=== PATIENT | female | born 1935 | race Caucasian/White ===

== ENCOUNTER 2024-02-15 13:28 | Inpatient (IN) | payer MEDICARE, OTHER, SELFPAY ==
[2024-02-15] VITALS (7 sets, daily range): BP systolic 100–121; BP diastolic 63–85; BMI 26.8
--- NOTE | 2024-02-15 11:03 | ED.GENMED ---
History of Present Illness
General
Chief Complaint: Rectal Bleeding
Source: patient
Time Seen by Provider: 02/15/24 10:49
History of Present Illness
History of Present Illness:
88-year-old female sent to the emergency room from [facility] where she was observed to have vomiting, dark stool and to be more lethargic than normal. Patient is typically nonverbal. She does not communicate with us whatsoever.
Past History
Past History
ED Past Medical History: Arrthythmia (AFIB), HTN, IDDM and Other (dementia)
Social History
Tobacco: Non-smoker
Alcohol: None
Drug: None
Personal: (Review of)
Living: [facility]
Employment: Other
Family History
Family History: Unable to obtain
Phy Exam
Physical Exam
Physical Exam:
General: Awake, nonverbal, appears chronically ill
Vitals: unremarkable
Head: Atraumatic
Eyes: Pupils equal, EOMI
Throat: Airway intact, no exudates
Neck: Trachea midline
Lungs: Clear and equal b/l
Heart: Regular rate, no murmurs
Abd: Soft, Nontender, No pulsatile mass
Rectal: Positive black stool
Neuro: Grossly nonfocal
Skin: Warm, dry, no rash
Extremities: pulses equal b/l, no edema
Course
Orders/Labs/Results
Orders:
Orders
02/15/24 10:53
Type+Screen Urgent
Complete Blood Count/With Diff Urgent
Comprehensive Metabolic Panel Urgent
Manual Differential Urgent
PT/INR [Prothrombin Time] Urgent
Troponin I Urgent
Urinalysis Reflex To Culture Urgent
Date Specimen was Collected: 02/15/24
Time Specimen was Collected: 10:49
Urine Microscopic Reflex Cult Urgent
Urine Culture Urgent
ROBBIN Source: U
Specimen Description:
Date Specimen was Collected: 02/15/24
Time Specimen was Collected: 10:49
02/15/24 11:01
Pantoprazole [Protonix IV] 80 mg IV NOW STA
02/15/24 11:38
ABO2 Urgent
BBK Wristband Number:
Associate notified that ABO2 has been ordered: [id number]
Date: 02/15/24
Time: 11:08
Money Manager ID: [id number]
02/15/24 11:55
Pantoprazole 80 mg/100 ml Nss [Protonix] 80 mg in 100 ml IV NOW
02/15/24 11:56
Lactated Ringers [Lr] 1,000 ml IV BOLUS
02/15/24 12:46
EKG [Electrocardiogram (*1)] Urgent
Reason for Study: Atrial Fibrillation
02/15/24 13:02
C DIFF [C difficile Antigen & Toxins] Urgent
ROBBIN Source: Feces/Stool
Specimen Description:
Ova & Parasites Giardia/Crypto AG [Giardia/Cryptosporidium Ag] Routine
ROBBIN Source: Feces/Stool
Specimen Description:
Stool Culture Urgent
ROBBIN Source: Feces/Stool
Specimen Description:
02/15/24 13:03
Phytonadione [Aquamephyton] 5 mg 0.9% Sodium Chloride 50 ml [Nss] 50 ml IV NOW
Abnormal Lab Results
02/15/24
10:53
WBC 12.8 H 10^3/uL
(4.8-10.8)
MCH 31.9 H pg
(27.0-31.0)
MPV 12.1 H fL
(7.4-10.4)
Abs Neuts (Manual) 10.8 H 10^3/uL
(1.4-6.5)
Band Neutrophils 20 H %
(0-3)
Lymphocytes (Manual) 5 L %
(20-51)
Monocytes (Manual) 10 H %
(2-9)
PT 56.5 H Sec
(11.4-14.6)
INR 6.48 H*
Carbon Dioxide 19 L mmol/L
(22-30)
BUN 113 H* mg/dl
(7-17)
Creatinine 2.7 H mg/dL
(0.6-1.0)
Glucose 192 H mg/dl
(70-99)
Total Protein 6.1 L g/dl
(6.3-8.2)
Albumin 3.4 L g/dl
(3.5-5.0)
Ur Occult Blood Reflex 1+ A
(Negative)
Urine Bilirubin 1+ A
(Negative)
Leukocyte Esterase Rfl 1+ A
(Negative)
Urine RBC 7-10 A /HPF
(0-2)
Urine WBC (Reflex) 40-50 A /HPF
(0-5)
Urine Bacteria (Reflex) Many A
(Negative)
Antibody Screen Positive A
(Negative)
02/15/24 10:53
02/15/24 10:53
Vital Signs
Initial and Last Documented VS:
Initial Vital Signs
Temp Pulse Resp BP Pulse Ox
99.1 F 118 20 120/85 96
02/15/24 10:51 02/15/24 10:51 02/15/24 10:51 02/15/24 10:51 02/15/24 10:51
Last Documented Vital Signs
Temp Pulse Resp BP Pulse Ox
99.1 F 100 21 101/63 98
02/15/24 10:51 02/15/24 11:45 02/15/24 11:45 02/15/24 11:31 02/15/24 11:45
MDM/Problems Addressed
Differential Diagnosis Includes:
Upper GI bleed, gastritis, peptic ulcer disease
MDM/Problems Addressed:
Patient presents from [facility] with melanotic stool. Presentation is very suggestive of a upper GI bleed given her elevated BUN. Patient unable to provide a history. Daughter in emergency room and states she had does have a history of a GI
bleed in the distant past. Patient noted to have antibody screen that is positive in blood bank. They will have to go through a process to identify the antibody before she can be crossed for any units of blood. Patient states that the patient has
not had a blood transfusion since they have been here in [facility]. She may have had a blood transfusion in [facility] which would have been 40 years ago.
Chronic conditions affecting care: Other (Dementia)
*Pulse Oximetry
Patient hypoxic: no
*Critical Care Note
Total Time (30-74mins, 75-104mins- exclusive of procedures): 32 min
comment:
Critical care statement: A total of 32 minutes of critical care time was provided for this patient. This includes management of unstable vital signs, evaluation of the patient at bedside, reviewing the patient's pertinent medical records, discussion
with consultants, review of old EKGs and review of pertinent medical records. This time with separate from time utilized to perform the aforementioned documented procedure
Data Reviewed
Review of Other/Old Records Reveals: Discharge Summary
Patient Management
Social determinants of health affecting care: Living situation
Discussion with other providers: Hospitalist
ED Attending Note
-
Portions of this chart may have been created with voice recognition software.� Occasional wrong word or��sound alike� substitutions may have occurred due to the inherent limitations of voice recognition software.
Discharge Plan
Departure
Patient Disposition: Admit
Date of Disposition: 02/15/24
Time of Disposition: 12:02
Admit to: IMU
Presentation/result/management discussed w/ accepting MD/DO: Hospitalist
Condition: Fair
Discharge Problem:
Acute upper GI bleeding
Prescriptions:
No Action
acetaminophen 325 MG tablet
650 mg PO Q4H PRN (Reason: mild pain/temp>100)
atorvastatin 20 MG tablet
20 mg PO DAILY
ferrous sulfate [FeroSul] 325 MG tablet
325 mg PO BID
mirtazapine 15 MG tablet
7.5 mg PO HS
cholecalciferol (vitamin D3) 2,000 UNITS tablet
4,000 unit PO DAILY
bumetanide 0.5 mg Tablet
0.5 mg PO DAILY
metoprolol tartrate 50 mg tablet
50 mg PO BID
diltiazem HCl 120 mg capsule,extended release 24hr
120 mg PO DAILY
spironolactone 50 mg Tablet
50 mg PO DAILY
linagliptin 5 mg Tablet
5 mg PO DAILY
magnesium oxide 400 mg magnesium Tablet
400 mg PO BID
Fiasp FlexTouch U-100 Insulin 100 unit/mL (3 mL) Insulin Pen
6 unit SC NOON
trolamine salicylate [Aspercreme] 10 % Cream
1 applic TOPICAL BID
Rx Instructions:
right knee
insulin glargine [Lantus Solostar U-100 Insulin] 100 unit/mL (3 mL) Insulin Pen
8 unit SC HS
Fiasp FlexTouch U-100 Insulin 100 unit/mL (3 mL) Insulin Pen
7 unit SC QPM
Fiasp FlexTouch U-100 Insulin 100 unit/mL (3 mL) Insulin Pen
4 unit SC DAILY
warfarin [Jantoven] 1 MG tablet
1 mg PO QPM
Referrals:
Laurent Jensen MD [Family Provider] -
Interventions
Interventions:
*Risk Screen - Suicide Last Done: 02/15/24 10:43
*General Assessment Last Done: 02/15/24 10:43
*Neglect/Abuse Screening Last Done: 02/15/24 10:43
ED- Fall Risk Assessment Last Done: 02/15/24 11:20
RT-Mvmtrg-Vxkcrvvqnz Assessment Last Done: 02/15/24 11:20
ED- Cardiac Assessment Last Done: 02/15/24 11:20
ED- Pulmonary Assessment Last Done: 02/15/24 11:20
Discharge Date and Time
Print Language: [place]
[2024-02-15 11:19] LABS: AST (SGOT) 33 U/L (14-36); Albumin 3.4 g/dl (3.5-5.0); Alkaline Phosphatase 80 U/L (38-126); Blood Urea Nitrogen 113 mg/dl (7-17); Calcium 8.6 mg/dl (8.4-10.2); Carbon Dioxide 19 mmol/L (22-30); Chloride 100 mmol/L (98-107); Glucose 192 mg/dl (70-99); Potassium 4.5 mmol/L (3.5-5.1); Sodium 136 mmol/L (135-145); Total Bilirubin 0.7 mg/dl (0.2-1.3); Total Protein 6.1 g/dl (6.3-8.2); eGFR 16.45
[2024-02-15] MEDS: PROTONIX IV 80 MG IV (11:32)
[2024-02-15 11:37] LABS: Urine Albumin Trace (Neg - Trace); Urine Bilirubin 1+ (Negative); Urine Character Clear (Clear); Urine Color Yellow; Urine Glucose Negative (Negative); Urine Ketone Negative (Negative); Urine Leukocyte 1+ (Negative); Urine Nitrite Negative (Negative); Urine Occult Blood 1+ (Negative); Urine Specific Gravity 1.015 (<1.030); Urine Urobilinogen Negative (Neg - 1+)
[2024-02-15 11:41] LABS: ALT (SGPT) 35 U/L (0-35)
[2024-02-15 11:47] LABS: Hematocrit 40.4 % (37.0-47.0); Hemoglobin 13.9 g/dL (12.0-16.0); Mean Corp Hgb Conc. 34.4 g/dL (33.0-37.0); Mean Corpuscular Hgb 31.9 pg (27.0-31.0); Mean Corpuscular Volume 92.7 fL (81.0-99.0); Mean Platelet Volume 12.1 fL (7.4-10.4); Platelet Count 187 10^3/uL (130-400); Red Blood Cell Count 4.36 10^6/uL (4.20-5.40); Red Cell Dist. Width 13.6 % (11.5-14.5); White Blood Cell Count 12.8 10^3/uL (4.8-10.8)
[2024-02-15 11:55] LABS: PT 56.5 Sec (11.4-14.6)
[2024-02-15 12:04] LABS: INR 6.48
[2024-02-15] MEDS: PROTONIX 100 IV (12:08)
[2024-02-15] MEDS: LR 1000 IV (12:08)
--- NOTE | 2024-02-15 12:21 | HPS.HSE ---
Family Physician
-
Family Physician: Laurent Jensen MD
Chief Complaint
-
Nausea, vomiting, diarrhea
History of Present Illness
88-year-old female sent from [facility] where she has resided since March 2018 for reported several days of diarrhea vomiting and weakness. Nurse reports she had black tarry like stool that was heme positive here in the ER. She
has had no episodes of vomiting while here. It appears she had lab work done on 02/05/2020 for her Coumadin was dropped to 1 mg daily until 02/19/2024 I am unsure of last dose. She is very lethargic sleeping will not open eyes although she will
move arms and readjust herself in bed she typically eats dysphagia 3 diet with thin liquids according to [facility] record and swallows pills orally although is completely unable to do that at present time due to extreme lethargy with inability to
follow commands. Her primary language is Vincentian according to chart. retirement denied fever, chills, diaphoresis, cough. Patient's mouth appears somewhat moist with manual opening, she does not grimace when I palpate her abdomen. She has past
medical history of paroxysmal A-fib on Coumadin, CKD stage Sandi, benign HTN, dementia with nonverbal status, bedbound status, dysphagia 3 diet with thin liquids, DM2 requiring insulin, chronic CHF, HLD, depression, osteoporosis, vitamin D deficiency,
PVD, venous insufficiency
Medical History
Past Medical History
Past Medical History: Reports Other
Additional Past Medical History:
A-fib on Coumadin
HTN
HLD
Chronic CHF
Cardiomyopathy
Dementia
Bedbound/nonverbal
Dysphagia
DM 2 requiring insulin
CKD 4A
Depression
Osteoporosis
PVD/venous insufficiency
Vitamin D deficiency
Past Surgical History: Reports Other
Additional Past Surgical History:
Hemorrhoidectomy
Social History
Tobacco: Non-smoker
Alcohol: None
Drug: None
Personal: Single
Living: Assisted ([facility])
Employment: Retired
Family History
Family History: Unable to Obtain
Allergies / Home Medications
Allergies reflects when Allergies were last updated in [facility].
Home Medications with original date entered in [facility]
Allergy/Medication List:
Allergies
Allergy/AdvReac Type Severity Reaction Status Date / Time
No Known Allergies Allergy Verified 02/15/24 10:42
Home Medications
acetaminophen 325 mg tablet 650 mg PO Q4H PRN mild pain/temp>100 04/05/18
atorvastatin 20 mg tablet 20 mg PO DAILY 04/05/18
cholecalciferol (vitamin D3) 50 mcg (2,000 unit) tablet 4,000 unit PO DAILY 04/05/18
ferrous sulfate 325 mg (65 mg iron) tablet (FeroSul) 325 mg PO BID 04/05/18
mirtazapine 15 mg tablet 7.5 mg PO HS 04/05/18
bumetanide 0.5 mg tablet 0.5 mg PO DAILY 06/18/22
diltiazem HCl 120 mg capsule,extended release 24 hr 120 mg PO DAILY 06/18/22
linagliptin 5 mg tablet 5 mg PO DAILY 06/18/22
magnesium oxide 400 mg PO BID 06/18/22
metoprolol tartrate 50 mg tablet 50 mg PO BID 06/18/22
spironolactone 50 mg tablet 50 mg PO DAILY 06/18/22
insulin aspart (niacinamide)(U-100) 100 unit/mL(3 mL) subcutaneous pen (Fiasp FlexTouch U-100 Insulin) 4 unit SC DAILY 02/15/24
insulin aspart (niacinamide)(U-100) 100 unit/mL(3 mL) subcutaneous pen (Fiasp FlexTouch U-100 Insulin) 6 unit SC NOON 02/15/24
insulin aspart (niacinamide)(U-100) 100 unit/mL(3 mL) subcutaneous pen (Fiasp FlexTouch U-100 Insulin) 7 unit SC QPM 02/15/24
insulin glargine 100 unit/mL (3 mL) subcutaneous pen (Lantus Solostar U-100 Insulin) 8 unit SC HS 02/15/24
trolamine salicylate 10 % topical cream (Aspercreme) 1 applic topical BID 02/15/24
warfarin 1 mg tablet (Jantoven) 1 mg PO QPM 02/15/24
Review of Systems
-
History Source: Assisted (Record) and Other (ER nurse record and exam)
A 12 point ROS was completed and negative except as noted: Yes
Constitutional: Denies Fever
EENT: Denies Runny Nose
Respiratory: Denies Cough or Trouble Breathing
Cardiac: Denies Diaphoresis or Syncope
Abdomen/GI: Reports Vomiting (Reported from [facility]) and Diarrhea (Reported from [facility] although here is black and tarry like); Denies Abdominal Pain or Bloody Stools
: Reports Other (Bedbound wears depends)
Musculoskeletal: Denies Joint Swelling or Edema
Skin: Denies Rash
Neurological: Reports Weakness (Generalized weakness will not open eyes but will move arms and legs in bed)
Endocrine: Reports No Symptoms
Hematologic/Lymphatic: Reports No Symptoms
Psych: Reports Calm
Physical Exam
Vital Signs
Vital Signs
Temp Pulse Resp BP Pulse Ox
99.1 F 100 21 101/63 98
02/15/24 10:51 02/15/24 11:45 02/15/24 11:45 02/15/24 11:31 02/15/24 11:45
Physical Exam
General: Other (Profound lethargy will not open eyes but will move arms and legs in bed history of dementia nonverbal and bedbound status although does take oral tablets at [facility]); No Fever or Chills
HEENT: NormoCephalic, PERRLA, [place] Conjunctivae (With manual opening of eyes), No Ptosis and Other (Slight moist oral mucosa with manual side-opening of mouth)
Respiratory: Clear; No Wheezes, Rales or Rhonchi
Cardiac: S1/S2 and Irregular Rhythm (A-fib); No Murmur, Rub, Gallop or Peripheral Edema
Breast: Deferred by me
GI: Soft, Non Tender, Non Distended, Normal Bowel Sounds and No Hepatosplenomegaly
Rectal: Hem Positive (Black tarry stool per ER attending)
Genito-urinary: Deferred by me
Musculoskeletal: No Clubbing, No Cyanosis and No Edema
Skin: Warm and Dry; No Rash
Neuro: No Motor Deficits (Is spontaneously moving arms and legs in bed with eyes closed) and Other (Profound lethargy will not open eyes but will move arms and legs in bed history of dementia nonverbal and bedbound status although does take oral
tablets at [facility]); No Slurred Speech, Facial Droop or Tremors
Psych: Calm
Laboratory Results
-
02/15/24 10:53
02/15/24 10:53
Laboratory Results
PT 56.5 Sec (11.4-14.6) H 02/15/24 10:53
INR 6.48 H* 02/15/24 10:53
Total Bilirubin 0.7 mg/dl (0.2-1.3) 02/15/24 10:53
AST 33 U/L (14-36) 02/15/24 10:53
ALT 35 U/L (0-35) 02/15/24 10:53
Alkaline Phosphatase 80 U/L (38-126) 02/15/24 10:53
Troponin I 0.020 ng/ml 02/15/24 10:53
Data Reviewed
-
Lab Data: Labs Reviewed by me
Impression/Plan
-
Impression/plan:
Admit to telemetry
#GI bleed on Coumadin with supratherapeutic INR
-Hgb 13.9
-Obtain blood consent
-Type and screen
-Hold on current blood transfusion
-Hold current oral iron 325 mg twice daily
-IV PPI bolus with drip
-Consult GI
#Supratherapeutic INR on Coumadin
INR 6.48
-Vitamin K 5 mg IV due to patient lethargy unable to swallow
-Check INR in a.m.
#Leukocytosis with bandemia likely UTI based on UA results
History of E. coli and Proteus [place] 2018 in urine urine
-Will check UA/ CONCRETE RUBBER -straight cath,
-Noncontrast CT of abdomen pelvis
-CXR
-Blood culture x 1
-IV Zosyn renal dose
-Follow above including CBC with differential
#A-fib on Coumadin
-Hold Coumadin due to GI bleed, hold metoprolol tartrate for rate control
#LINDSEY due to blood loss/volume depletion on CKD stage 4A
Creatinine 2.7 prior was 1.10 June 2022
-IV LR 1 L given in ER
-Will give D5 with sodium bicarb 80 cc an hour
-Follow CMP, mag, Phos
#Reported diarrhea from [facility]
-Will check C. difficile, stool culture, ova and parasites
#Hypotension due to volume depletion/blood loss/Hx HTN�benign
BP 101/63
-cont metoprolol tartrate 50 mg twice daily
-hold spironolactone 50 mg daily, Bumex 0.5 mg daily
-Hold diltiazem 120 mg daily
#Dementia-nonverbal
#Bedbound
-Fall precautions
#Dysphagia
Typically eats dysphagia 3 with thin liquids
-We will hold above diet due to GI bleed
-N.p.o. except meds when alert
#DM 2 requiring insulin
BS 192
-Accu-Cheks with SSI, check HgbA1c
-Hold U100 4 units subcu daily, 6 units SQ noon, 7 units subcu p.m.
-Hold Lantus 8 units SQ at bedtime
-Hold linagliptin 5 mg daily
#HLD
-Hold a atorvastatin 20 mg daily
#Chronic CHF
#Cardiomyopathy
I/O, daily weights
-Hold spironolactone due to GI bleed
2D echo 04/06/2018: EF 50-55%, normal LVSF, severely dilated left and right atrium, moderate to severe TR pulm arterial pressure 56 to 61 mmHg-mild/moderate pulm
#Depression
-Continue mirtazapine 7.5 mg p.o. at bedtime
Other PMH:
Osteoporosis
PVD/venous insufficiency
DVT prophylaxis
SCDs
DNR per [facility] records
[2024-02-15 12:36] LABS: Absolute Neutrophils -Man Diff 10.8 10^3/uL (1.4-6.5); Band Neutrophils 20 % (0-3); Lymphocytes 5 % (20-51); Monocytes 10 % (2-9); Segmented Neutrophils 65 % (42-75)
[2024-02-15 12:37] LABS: Normal RBC Morphology Yes; Platelets Checked Yes; Total Cells Counted 100
[2024-02-15 12:53] LABS: Urine Mucus Moderate
[2024-02-15 12:54] LABS: Urine Amorphous Seen; Urine Hyaline Cast >15 /LPF (0-2)
[2024-02-15 12:55] LABS: Urine White Cell 40-50 /HPF (0-5)
--- NOTE | 2024-02-15 12:55 | W.PN.UPDATE ---
Addendum entered and electronically signed by Ashwini Milligan MD 02/16/24 00:00:
CT A/P
IMPRESSION:
MARKEDLY LIMITED STUDY WITHOUT ORAL CONTRAST, WITHOUT INTRAVENOUS CONTRAST AND A RESULT OF MARKED BEAM HARDENING ARTIFACT FROM BILATERAL UPPER EXTREMITIES.
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 Cannot exclude
accompanying intervening small abnormal focal fluid collection. Repeat study with oral contrast/delayed imaging may be helpful for more complete evaluation.
Cholelithiasis.
Small simple left renal cyst. No findings to suggest bilateral obstructive uropathy.
Marked thickening of the wall predominantly of distal small bowel seen in the right lower quadrant extending into the true pelvis abutting the sigmoid colon
Lobulated low-attenuation cystic area with peripheral calcification in the right retroperitoneum measuring 5 cm in greatest dimension, well-defined. One differential diagnostic possibility would be an old calcified hematoma.
continue IV Zosyn
low threshold for repeat CT with oral contrast (if patient tolerates) if no clinical improvement
Addendum entered and electronically signed by Ashwini Milligan MD 02/15/24 13:29:
UA inflamed, unclear if source of bandemia. Will treat with IV Zosyn which will also cover GI source - awaiting CT.
Original Note:
Update Note
Progress Note Update
This is an addendum to H&P written by CASE PACKER Em Mabry
I saw and examined the patient.
The CASE PACKER's note was reviewed and I agree with the note.
Comment:
Ms. Gretta Dill is a 88 yo woman with hx dementia (non-verbal at baseline, resident of [facility]), atrial fibrillation, essential HTN, IDDM presents to the ER with vomiting and found to have dark stool.
Triage VS: T 99.1, P 118, RR 20, BP 120/85, SpO2 96%
LABS: WBC 12.8, Hg 13.9, PLT 187, bands 20%, Na 136, K+ 4.5, CO2 19, BUN 113, Cr 2.7, Glucose 192, Trop 0.020, liver enzymes WNL, INR 6.48
MAR: IV protonix, IV protonix gtt, LR bolus
Patient is found to be lethargic but responding to daughter at bedside, abdomen benign, no LE swelling. She is found to be in afib with RVR, have a leukocytosis with bandemia, acute kidney injury and INR 6.48.
Melena and Diarrhea
-non-con CT given presence of bandemia and LINDSEY (see below)
-continue IV protonix gtt
-NPO
-GI consulted
Acute Kidney Injury
-further work-up with non-con CT
-urine studies
-IV sodium bicarb
Bandemia
-will look for sources of infection with UA, CXR and CT as above
Atrial Fibrillation
INR > 6
-in setting of bleed will give IV vitamin K, start with 5mg
-hold coumadin
-STEPDOWN NURSE Metoprolol with hold parameters
-hold Dilitazem for now with soft BP
IDDM
-1/2 STEPDOWN NURSE Lantus 4 units qhs; hold pre-meal
-ISS
HFpEF
-hold STEPDOWN NURSE spironolactone and bumex
DNR
76 minutes spent on patient care
[2024-02-15 12:57] LABS: Urine Bacteria Many (Negative)
--- NOTE | 2024-02-15 14:23 | PTCARENOTE ---
patient arrived to unit. VSS, Heart monitor placed. SCDs in place. foam dressing placed to sacrum. Patient's family at bedside. will continue to monitor
[2024-02-15 14:39] LABS: Phosphorus 5.1 mg/dl (2.5-4.5)
[2024-02-15] MEDS: AQUAMEPHYTON 50.5 MG IV (14:47)
--- NOTE | 2024-02-15 15:02 | CON.GI ---
Addendum entered and electronically signed by Ranulfo Merritt DO 02/15/24 17:40:
I saw and examined the patient.
The RESEARCH ASSOCIATE POLICY's note was reviewed and I agree with the note.
Comment: This is a 88 y.o non-verbal patient with past medical history as below who presented from SNF with change in mental status, vomiting, and dark stools. She is on coumadin for her personal history of A Fib. Found to have dark tarry stools
concerning for melena in ED with a Hgb 13s and INR 6.48 in ED. Patient is quite lethargic and unable to provide any history. She has not had any further melena on admission, doubt brisk UGIB. No prior history of GI bleeding in the past. Suspect
oozing in setting of her supratherapeutic INR. She is also on iron supplementation as well. Given her current mental status and overall co-morbidities, would recommend conservative management rather than endoscopy at this time.
#Dark Stools
#Supratherapeutic INR
#Non-verbal #Dementia
Recommendations:
- Await infectious w/u given concern for altered mental status and leukocytosis
- IV PPI 40 gm BiD
- Trend Hgb with serial CBC, transfuse PRN
- Agree with cross-sectional imaging both for infectious purposes given her AMS and leukocytosis and concern for GIB
- No plans for endoscopic evaluation at this time. Would consider EGD if patient's clinical course were to change, but prefer to avoid this given her overall clinical condition
- Avoidance of all NSAIDs
- Rest of care as outlined below
Original Note:
Consultation
-
Date/Time Consultation Requested: 02/15/24 1300
Date/Time Consultation Performed: 02/15/24 1500
Requesting Provider: KISHA Kruse
Performing Provider: KISHA Poon, Ranulfo Merritt DO
Reason for Consultation: black stool
Medical History
Chief Complaint / HPI
Chief Complaint: change in mental status
History of Present Illness:
Pt is an 88yo non verbal with hx dementia, afib on Coumadin, CKD, CHF, HTN, hyperlipidemia, CKD, NIDDM, cardiomyopathy, osteoporosis, PVD, venous insufficiency, vitamin D presents from SNF with change in mental status, black stools and vomiting. In
ER she is noted with black tarry stools. On admission noted with WBC 12,800, BUN 113, creat 2.7, mag 4, phos 5.1, INR 6.48(with chronic Coumadin use) with also concern for UTI. In review with daughter patient is baseline non verbal but awake and
alert with chronic pureed diet. Daughter admits to episode of vomiting prior to admission but unsure if any blood or black in emesis. She is not aware of GERD, abdominal pain, chronic diarrhea, constipation or prior bleeding. Hx colonoscopy years
ago. Pt is on chronic iron therapy prior to admission.
Past Medical History
Past Medical History: Arrhythmias (afib on coumadin ), CHF, HTN, Hypercholesterolemia, NIDDM, Renal Failure (CKD), Psychiatric (dementia) and Other (cardiomyopathy, osteoporosis, PVD, venous insufficiency, vitamin D)
Past Surgical History: Other (hemorrhoidectomy)
Social History
Tobacco: Non-Smoker
Alcohol: None
Drug: None
Living: Shelter
Employment: Retired
Family History
Family History: Reviewed & Not Pertinent and Other
Allergies / Home Medications
Allergy/AdvReac Type Severity Reaction Status Date / Time
No Known Allergies Allergy Verified 02/15/24 10:42
�Medication �Instructions �Recorded
acetaminophen 325 mg tablet 650 mg PO Q4H PRN mild 04/05/18
pain/temp>100
atorvastatin 20 mg tablet 20 mg PO DAILY 04/05/18
cholecalciferol (vitamin D3) 50 4,000 unit PO DAILY 04/05/18
mcg (2,000 unit) tablet
ferrous sulfate 325 mg (65 mg 325 mg PO BID 04/05/18
iron) tablet (FeroSul)
mirtazapine 15 mg tablet 7.5 mg PO HS 04/05/18
bumetanide 0.5 mg tablet 0.5 mg PO DAILY 06/18/22
diltiazem HCl 120 mg 120 mg PO DAILY 06/18/22
capsule,extended release 24 hr
linagliptin 5 mg tablet 5 mg PO DAILY 06/18/22
magnesium oxide 400 mg PO BID 06/18/22
metoprolol tartrate 50 mg tablet 50 mg PO BID 06/18/22
spironolactone 50 mg tablet 50 mg PO DAILY 06/18/22
insulin aspart 4 unit SC DAILY 02/15/24
(niacinamide)(U-100) 100 unit/mL(3
mL) subcutaneous pen (Fiasp
FlexTouch U-100 Insulin)
insulin aspart 6 unit SC NOON 02/15/24
(niacinamide)(U-100) 100 unit/mL(3
mL) subcutaneous pen (Fiasp
FlexTouch U-100 Insulin)
insulin aspart 7 unit SC QPM 02/15/24
(niacinamide)(U-100) 100 unit/mL(3
mL) subcutaneous pen (Fiasp
FlexTouch U-100 Insulin)
insulin glargine 100 unit/mL (3 8 unit SC HS 02/15/24
mL) subcutaneous pen (Lantus
Solostar U-100 Insulin)
trolamine salicylate 10 % topical 1 applic topical BID 02/15/24
cream (Aspercreme)
warfarin 1 mg tablet (Jantoven) 1 mg PO QPM 02/15/24
Review of Systems
-
Unable to obtain full review of systems at this time due to: Dementia
History Source: Patient and Family
Constitutional: Reports Fatigue
EENT: Reports No Symptoms
Respiratory: Reports No Symptoms
Cardiac: Reports No Symptoms
Abdomen/GI: Reports Vomiting and Black Stools
: Reports No Symptoms
Musculoskeletal: Reports No Symptoms
Skin: Reports No Symptoms
Neurological: Reports Weakness
Endocrine: Reports No Symptoms
Hematologic/Lymphatic: Reports Bleeding
Vital Signs
Temp Pulse Resp BP Pulse Ox
97.7 F 124 24 121/76 98
02/15/24 14:27 02/15/24 14:27 02/15/24 14:27 02/15/24 14:27 02/15/24 14:27
Physical Exam
Exam
General: Other (elderly female non verbal eyes closed but open with some stimulation)
HEENT: Normocephalic and Anicteric
Respiratory: Clear
Cardiac: Other (tachy)
GI: Soft, Non Distended and Tender (? minimal grimace with palpation, limited exam with decreased mentation)
Rectal: Other (black tarry stool in ER)
Musculoskeletal: No Clubbing and No Cyanosis
Skin: Warm and Dry
Neuro: Other (lethargic some eye opening with stimuli)
Psych: Calm
Results
WBC 12.8 10^3/uL (4.8-10.8) H 02/15/24 10:53
Hgb 13.9 g/dL (12.0-16.0) 02/15/24 10:53
Hct 40.4 % (37.0-47.0) 02/15/24 10:53
MCV 92.7 fL (81.0-99.0) 02/15/24 10:53
Plt Count 187 10^3/uL (130-400) 02/15/24 10:53
PT 56.5 Sec (11.4-14.6) H 02/15/24 10:53
INR 6.48 H* 02/15/24 10:53
Sodium 136 mmol/L (135-145) 02/15/24 10:53
Potassium 4.5 mmol/L (3.5-5.1) 02/15/24 10:53
Chloride 100 mmol/L (98-107) 02/15/24 10:53
Carbon Dioxide 19 mmol/L (22-30) L 02/15/24 10:53
BUN 113 mg/dl (7-17) H* 02/15/24 10:53
Creatinine 2.7 mg/dL (0.6-1.0) H 02/15/24 10:53
Calcium 8.6 mg/dl (8.4-10.2) 02/15/24 10:53
Total Bilirubin 0.7 mg/dl (0.2-1.3) 02/15/24 10:53
AST 33 U/L (14-36) 02/15/24 10:53
ALT 35 U/L (0-35) 02/15/24 10:53
Alkaline Phosphatase 80 U/L (38-126) 02/15/24 10:53
Diagnostic Image Results:
CT pending
Prior GI Procedures:
EGD: none
Colonoscopy: years ago per family
Assessment / Plan
-
Pt is an 88yo non verbal with hx dementia, afib on Coumadin, CKD, CHF, HTN, hyperlipidemia, CKD, NIDDM, cardiomyopathy, osteoporosis, PVD, venous insufficiency, vitamin D presents from SNF with change in mental status, black stools and vomiting. In
ER she is noted with black tarry stools. On admission noted with WBC 12,800, BUN 113, creat 2.7, mag 4, phos 5.1, INR 6.48(with chronic Coumadin use) with also concern for UTI. In review with daughter patient is baseline non verbal but awake and
alert with chronic pureed diet. Daughter admits to episode of vomiting prior to admission but unsure if any blood or black in emesis. She is not aware of GERD, abdominal pain, chronic diarrhea, constipation or prior bleeding. Hx colonoscopy years
ago. Pt is on chronic iron therapy prior to admission.
-melena
-change in mental status
-diarrhea prior to admission
-leukocytosis with bandemia
-tachycardia
-afib on Coumadin
-coagulopathy on admission
-LINDSEY with hx CKD
other med problems:
-dementia baseline non verbal per family
-chronic dysphagia on pureed diet
-DM
-CHF
-HTN
-hyperlipidemia
-CM
-PVD
-venous insufficiency
-depression
PLAN:
etiology of melena related with marked elevated BUN related to upper GI source, PUD, HH/suly lesions, AVM, vs other
agree with CT
monitor stools output and trend hbg -- remain stable at 13.9 on admission
s/p vitamin K
PPI BID
await work up for leukocytosis
consider EGD pending course
I updated daughter Annette - she is primary contact for consent if needed
-
-
Thank you for consultation and allowing me to participate in the patient's care. Please call the environmental protection geologist GI physician during the after hours with any questions or concerns.
[2024-02-15] MEDS: ZOSYN 50 IV ×2 (15:22→23:14)
--- NOTE | 2024-02-15 15:46 | PTOTSP ---
Chart reviewed, spoke with nurse. The patient is a half-way resident, nonverbal and bedbound at baseline. No functional goals to warrant PT evaluation, will sign off. Discussed with RN.
[2024-02-15] MEDS: SODIUM BICARBONATE 1150 MEQ IV (16:27)
[2024-02-15 16:44] LABS: Glucose - Point of Care 214 mg/dl (70-99)
[2024-02-15] MEDS: NOVOLOG FLEXPEN-LOW RESISTANCE 2 UNITS SC (18:08)
--- NOTE | 2024-02-15 18:43 | PTCARENOTE ---
patient's CT resulted, MD Milligan notified
[2024-02-15] MEDS: LOPRESSOR PO (21:08)
[2024-02-15 21:14] LABS: Glucose - Point of Care 221 mg/dl (70-99)
[2024-02-15] MEDS: LANTUS 0.04 UNITS SC (21:15)
[2024-02-16 00:53] LABS: Glucose - Point of Care 207 mg/dl (70-99)
[2024-02-16] MEDS: NOVOLOG FLEXPEN-LOW RESISTANCE 2 UNITS SC ×2 (00:55→12:53)
[2024-02-16 01:07] LABS: Glucose - Point of Care 218 mg/dl (70-99)
[2024-02-16 03:32] VITALS: BP 117/79
[2024-02-16] MEDS: SODIUM BICARBONATE 1150 MEQ IV (05:37)
[2024-02-16 05:47] LABS: Hemoglobin 12.7 g/dL (12.0-16.0); Mean Corp Hgb Conc. 33.4 g/dL (33.0-37.0); Mean Corpuscular Hgb 32.4 pg (27.0-31.0); Mean Corpuscular Volume 96.9 fL (81.0-99.0); Mean Platelet Volume 11.9 fL (7.4-10.4); Platelet Count 161 10^3/uL (130-400); Red Blood Cell Count 3.92 10^6/uL (4.20-5.40); Red Cell Dist. Width 13.7 % (11.5-14.5); White Blood Cell Count 10.4 10^3/uL (4.8-10.8)
[2024-02-16 05:48] LABS: INR 1.26; PT 16.3 Sec (11.4-14.6)
[2024-02-16 05:57] LABS: Blood Urea Nitrogen 95 mg/dl (7-17); Calcium 8.5 mg/dl (8.4-10.2); Carbon Dioxide 29 mmol/L (22-30); Chloride 100 mmol/L (98-107); Estimated Creatinine Clearance 20 ml/min; Glucose 216 mg/dl (70-99); Potassium 3.9 mmol/L (3.5-5.1); Sodium 142 mmol/L (135-145); eGFR 26.77
[2024-02-16 06:00] VITALS: BMI 27.1
[2024-02-16 06:17] LABS: Glucose - Point of Care 179 mg/dl (70-99)
[2024-02-16] MEDS: NOVOLOG FLEXPEN-LOW RESISTANCE 1 UNITS SC (06:18)
[2024-02-16 06:54] LABS: % Basophils 0.6 % (0-2); % Eosinophils 0.6 % (0-6); % Immature Granulocytes 0.7 % (0-0.5); % Monocytes 11.1 % (1.7-9.3); Absolute Basophils 0.1 10^3/uL (0-0.2); Absolute Eosinophils 0.1 10^3/uL (0-0.7); Absolute Immature Granulocytes 0.1 10^3/uL (0-0.05); Absolute Lymphocytes 0.9 10^3/uL (1.2-3.4); Absolute Monocytes 1.2 10^3/uL (0.1-0.6); Absolute Neutrophils 8.1 10^3/uL (1.4-6.5); Nucleated Red Blood Cells % 0 %
[2024-02-16 07:00] VITALS: BP 101/57
--- NOTE | 2024-02-16 07:52 | W.PN.HOSP.TC ---
Today's Communication/Plan
-
see bold
Assessment / Plan
Assessment / Plan
88-year-old female sent from [facility] where she has resided since March 2018 for reported several days of diarrhea vomiting and weakness. Nurse reports she had black tarry like stool that was heme positive here in the ER. She
has had no episodes of vomiting while here. It appears she had lab work done on 02/05/2020 for her Coumadin was dropped to 1 mg daily until 02/19/2024 I am unsure of last dose. She is very lethargic sleeping will not open eyes although she will
move arms and readjust herself in bed she typically eats dysphagia 3 diet with thin liquids according to halfway record and swallows pills orally although is completely unable to do that at present time due to extreme lethargy with inability to
follow commands. Her primary language is Italian according to chart. prison denied fever, chills, diaphoresis, cough. Patient's mouth appears somewhat moist with manual opening, she does not grimace when I palpate her abdomen. She has past
medical history of paroxysmal A-fib on Coumadin, CKD stage Sandi, benign HTN, dementia with nonverbal status, bedbound status, dysphagia 3 diet with thin liquids, DM2 requiring insulin, chronic CHF, HLD, depression, osteoporosis, vitamin D deficiency,
PVD, venous insufficiency
#Sigmoid colitis
#Leukocytosis with bandemia
Continue IV Zosyn
#Dark stools
Patient is on iron twice a day
Appreciate GI input, no signs of active bleeding, recommend PPI 40 twice daily inpt, then change to once daily upon discharge
Hemoglobin remains normal
Monitor hemoglobin, heme test stool
#Supratherapeutic INR
#Atrial fibrillation on Coumadin
INR 6.48 upon admission, normal today status post vitamin K 5 mg IV on 02/14
Resume Coumadin 1 mg p.o. daily
Continue metoprolol for rate control
Resume diltiazem for rate control
# Positive blood cultures
02/15/2024 blood culture growing gram-positive cocci
Possibly contaminant, repeat blood cultures today
Already on antibiotics for the above
#Acute kidney injury
Improving w/ IVFs
Due to dehydration, continue IV fluids, trend creatinine
No nephrotoxic drugs/NSAIDs
#Urinary tract infection ruled out
Urine cultures growing 50,000 colonies of gram-negative rods
#Essential hypertension
Hold spironolactone. Continue metoprolol for rate control
Resume diltiazem for rate control
#Diabetes
A1C 6.6
Continue glargine 4 units at bedtime, sliding scale insulin
#Dementia
#Dysphagia
#Depression
Nonverbal at baseline, cleared by SPL for minced/moist diet
Continue Remeron
DVT prophylaxis�resume Coumadin
DNR
Updated daughter on phone 02/15
Total time spent to see the patient on the floor, examine the patient, review data and lab results, discuss treatment plan with patient, nursing staff around 51 minutes.
Physical Exam
General: No acute distress
HEENT: Normocephalic, Atraumatic, EOMI, MMM
Respiratory: Clear to Auscultation bilaterally
Cardiac: Normal S1/S2, Regular Rate and Rhythm
GI: Soft, Nontender, Nondistended, Normal Bowel Sounds
Extremities: No Clubbing, Cyanosis, or Edema
Neuro: Nonverbal, pleasantly confused
Psych: Calm, Cooperative
Derm: No Visible lesions
Anticipated Discharge: 24 - 48 hours
Subjective/Interval History
-
Date of Service: February 16, 2024
Nursing staff reports that patient had soft dark brown stool this morning. She is nonverbal at baseline. No fever, no vomiting.
Objective Data
-
Labs:
Laboratory Results
02/15/24 02/16/24 02/16/24
22:12 05:00 05:13
WBC 10.4
Hgb 13.0 Cancelled 12.7
Hct 38.0
Plt Count 161
PT 16.3 H
INR 1.26 D
Sodium 142
Potassium 3.9
Chloride 100
Carbon Dioxide 29
BUN 95 H
Creatinine 1.8 H
Glucose 216 H
Calcium 8.5
Total Bilirubin
AST
ALT
Alkaline Phosphatase
02/16/24 02/16/24
06:00 13:00
WBC
Hgb Pending
Hct
Plt Count
PT
INR
Sodium Cancelled
Potassium Cancelled
Chloride Cancelled
Carbon Dioxide Cancelled
BUN Cancelled
Creatinine Cancelled
Glucose Cancelled
Calcium Cancelled
Total Bilirubin Cancelled
AST Cancelled
ALT Cancelled
Alkaline Phosphatase Cancelled
Vital Signs:
Vital Signs
Temp Pulse Resp BP Pulse Ox
98.4 F 97 18 117/79 94
02/16/24 03:32 02/16/24 03:32 02/16/24 03:32 02/16/24 03:32 02/16/24 03:32
I&O
02/15/24 02/16/24 02/17/24
06:59 06:59 06:59
Intake Total 1000 / 1000
Balance 1000 / 1000
[2024-02-16 08:28] LABS: Glucose - Point of Care 191 mg/dl (70-99)
--- NOTE | 2024-02-16 08:30 | PTOTSP ---
Speech Language Pathology
Pt seen for clinical bedside swallow evaluation. Pt cooperative and pleasant, nonverbal. P.O. trials of puree, regular solids, and thin liquids provided. Prolonged mastication of regular solids, requiring multiple liquid washes. No overt signs
of aspiration.
Recommend:
(1) Initiate IDDSI Level 5 (minced/moist) solids and thin liquids
(2) Aspiration precautions: full assist, slow rate, sit upright, ensure oral cavity clear post P.O. intake
(3) Meds crushed in puree or as tolerated (pt may pocket if not crushed given cognitive status)
(4) OVERHEAD GARAGE DOOR HANGER to continue to follow
--- NOTE | 2024-02-16 08:31 | W.PN.GI.CBS2 ---
Today's Communication / Plan
-
Infectious workup/management per primary team. Hgb stable. GI will sign off, please call with questions.
Assessment / Plan
-
88 y.o non-verbal patient with past medical history as below who presented from [facility] with change in mental status, vomiting, and dark stools. She is on coumadin for her personal history of A Fib. Found to have dark tarry stools concerning for melena
in ED with a Hgb 13s and INR 6.48 in ED. Patient is quite lethargic and unable to provide any history. She has not had any further melena on admission, doubt brisk UGIB. No prior history of GI bleeding in the past. Suspect oozing in setting of her
supratherapeutic INR. She is also on iron supplementation as well. Given her current mental status and overall co-morbidities, would recommend conservative management rather than endoscopy at this time. Additionally, she was found to have a mild
leukocytosis of 12.[address] scan with concern for severe sigmoid colitis, though, markedly limited study due to lack of PO contrast, she was subsequently started on zosyn. Blood cx returned positive for gram positive cocci in
clusters.
#Dark Stools
#Supratherapeutic INR
#Severe sigmoid colitis
#Bandemia
#Non-verbal #Dementia
Recommendations:
- No signs of active GI bleeding, INR has now normalized. Continue with PPI 40mg BID will inpatient, upon discharge, change to PO 40mg once daily (per records, patient able to take oral meds at [facility])
-continue to trend hemoglobin and monitor stool (please do not continue to check for occult blood)
-No plans for endoscopic evaluation
-Abnormal CT scan with concern for severe sigmoid colitis, but limited due to lack of contrast. Given blood culture prelim results with gram positive cocci in clusters, I do not feel this sigmoid colitis is the source of her infection, recommend
evaluate for alternative sources (skin and soft tissue etc.). Given her immobility and comorbidities, she is most likely constipated at baseline
-if concern remains regarding this abnormality in the sigmoid colon, would recommend repeating study with PO contrast, although, unlikely patient would be able to tolerate and it may require NG placement
GI will sign off, please call with questions.
Subjective
Subjective
Date of Service: February 16, 2024
Hemoglobin 12.7 this morning. Patient largely unresponsive, appears to be resting comfortably. CAT scan showed possible severe sigmoid colitis as well as marked thickening of the wall predominantly of the distal small bowel seen in the RLQ
extending into the true pelvis, abutting the sigmoid colon, although somewhat limited due to lack of oral contrast. Rest of findings outlined below.
She had a large brown bowel movement overnight, no evidence of GI bleeding.
Leukocytosis of 12.8, bandemia of 20 on labs yesterday. Inconjucntion with the sigmoid colitis, she was started on zosyn.
Objective
Data Reviewed
Laboratory Data:
Laboratory Results
02/16/24 13:00
02/16/24 06:00
Laboratory Results
PT 16.3 Sec (11.4-14.6) H 02/16/24 05:13
INR 1.26 D 02/16/24 05:13
Phosphorus 5.1 mg/dl (2.5-4.5) H 02/15/24 10:53
Magnesium 4.0 mg/dl (1.6-2.3) H 02/15/24 10:53
Total Bilirubin Cancelled 02/16/24 06:00
AST Cancelled 02/16/24 06:00
ALT Cancelled 02/16/24 06:00
Alkaline Phosphatase Cancelled 02/16/24 06:00
Vital Signs and I&O:
Vital Signs
Temp Pulse Resp BP Pulse Ox
98.4 F 97 18 117/79 94
02/16/24 03:32 02/16/24 03:32 02/16/24 03:32 02/16/24 03:32 02/16/24 03:32
I&O
11/10/3102/16/24 02/17/24
06:59 06:59 06:59
Intake Total 1000 / 1000
Balance 1000 / 1000
Physical Exam
Physical Exam
GENERAL: Lethargic, unresponsive (appears to be baseline, nonverbal with history of dementia)
Abd: Soft, nontender and nondistended
[2024-02-16] MEDS: LOPRESSOR PO (09:24)
[2024-02-16] MEDS: PROTONIX IV 40 MG IV ×2 (09:26→21:23)
[2024-02-16] MEDS: ZOSYN 50 IV ×3 (09:26→23:32)
[2024-02-16] MEDS: NSS (PRESERVATIVE FREE) 10 ML IV ×2 (09:26→21:23)
[2024-02-16 10:10] LABS: Glycohemoglobin (HgbA1c) 6.6 % (4.0-5.6)
[2024-02-16 11:00] VITALS: BP 126/62
--- NOTE | 2024-02-16 11:36 | CM ---
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 Plan is for patient to return to [facility] when
stable. manager multicultural spoke with patient's daughter, Annette and confirmed discharge plan back to [place] when stable.
PCP: Laurent Jensen
Pharmacy: [facility] in [place]
[facility]
Report [phone] Station [phone]
[2024-02-16 12:32] LABS: Glucose - Point of Care 230 mg/dl (70-99)
[2024-02-16 15:00] VITALS: BP 124/68
[2024-02-16] MEDS: SODIUM BICARBONATE IV (15:27)
--- NOTE | 2024-02-16 16:13 | PN.CDI ---
CDI
- -
CDI:
Physician Documentation Request
Admit Date: 02/15/24 13:28
Dear Doctor Do,
Patient admitted for sigmoid colitis.
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
Selected Entries
02/16/24
09:00
Meal type: Breakfast
Type of Feed- Complete
Which, if any, of the following is a likely etiology of the above abnormalities and treatment rendered:
- Functional quadriplegia (complete immobility due to severe physical disability or vrulhav-[id number] cause)
- Age related weakness or frailty - without complete immobility
- Generalized weakness - indicate known or suspected etiology
- Other (please specify):
Use of terms such as suspected, likely, concern for, or probable (associated with a specific diagnosis that is being evaluated, monitored, or treated as if it exists) are acceptable and can be coded in the inpatient setting, when documented at the
time of discharge.
Thank you,
Silvia Cornelius RN, BSN
CDI Specialist
Available via [employer] text
Please use your independent medical judgment in providing your response.
[2024-02-16 17:12] LABS: Glucose - Point of Care 271 mg/dl (70-99)
[2024-02-16] MEDS: COUMADIN PO (18:03)
[2024-02-16] MEDS: CARDIZEM CD 120 MG PO (18:03)
[2024-02-16] MEDS: NOVOLOG FLEXPEN-LOW RESISTANCE 3 UNITS SC (18:04)
[2024-02-16] MEDS: 0.45%NACL 1000 IV (18:09)
[2024-02-16] MEDS: COUMADIN 1 MG PO (18:32)
--- NOTE | 2024-02-16 18:45 | PTCARENOTE ---
1840 Pt had large soft Black/Green Tarry stool (hemetest positive) Notified Dr. Beltran (hospitalist) pt currently on coumadin 1 mg po at 1800. Dr. Beltran recommended to give Coumadin dose as ordered. Report given to shift stacker nurse.
[2024-02-16 19:03] VITALS: BP 114/62
[2024-02-16] MEDS: LOPRESSOR 50 MG PO (21:24)
[2024-02-16 21:36] LABS: Glucose - Point of Care 208 mg/dl (70-99)
[2024-02-16] MEDS: LANTUS 0.04 UNITS SC (21:39)
[2024-02-16 23:27] VITALS: BP 91/58
[2024-02-17 03:42] VITALS: BP 106/61
[2024-02-17 06:00] VITALS: BMI 27.3
[2024-02-17] MEDS: 0.45%NACL 1000 IV ×2 (06:23→19:44)
[2024-02-17 07:00] VITALS: BP 113/75
[2024-02-17 07:08] LABS: Hematocrit 33.9 % (37.0-47.0); Hemoglobin 11.6 g/dL (12.0-16.0); Mean Corp Hgb Conc. 34.2 g/dL (33.0-37.0); Mean Corpuscular Hgb 32.6 pg (27.0-31.0); Mean Corpuscular Volume 95.2 fL (81.0-99.0); Mean Platelet Volume 11.7 fL (7.4-10.4); Platelet Count 156 10^3/uL (130-400); Red Blood Cell Count 3.56 10^6/uL (4.20-5.40); Red Cell Dist. Width 13.5 % (11.5-14.5); White Blood Cell Count 11.7 10^3/uL (4.8-10.8)
[2024-02-17 07:27] LABS: INR 1.22; PT 15.7 Sec (11.4-14.6)
[2024-02-17 07:33] LABS: Blood Urea Nitrogen 66 mg/dl (7-17); Calcium 7.7 mg/dl (8.4-10.2); Carbon Dioxide 33 mmol/L (22-30); Chloride 95 mmol/L (98-107); Estimated Creatinine Clearance 26 ml/min; Glucose 209 mg/dl (70-99); Potassium 3.3 mmol/L (3.5-5.1); Sodium 140 mmol/L (135-145); eGFR 36.19
[2024-02-17 07:47] LABS: Glucose - Point of Care 190 mg/dl (70-99)
--- NOTE | 2024-02-17 08:36 | W.PN.HOSP.TC ---
Today's Communication/Plan
-
see bold
Assessment / Plan
Assessment / Plan
88-year-old female sent from [facility] where she has resided since March 2018 for reported several days of diarrhea vomiting and weakness. Nurse reports she had black tarry like stool that was heme positive here in the ER. She
has had no episodes of vomiting while here. It appears she had lab work done on 02/05/2020 for her Coumadin was dropped to 1 mg daily until 02/19/2024 I am unsure of last dose. She is very lethargic sleeping will not open eyes although she will
move arms and readjust herself in bed she typically eats dysphagia 3 diet with thin liquids according to care home record and swallows pills orally although is completely unable to do that at present time due to extreme lethargy with inability to
follow commands. Her primary language is Bruneian according to chart. halfway denied fever, chills, diaphoresis, cough. Patient's mouth appears somewhat moist with manual opening, she does not grimace when I palpate her abdomen. She has past
medical history of paroxysmal A-fib on Coumadin, CKD stage Sandi, benign HTN, dementia with nonverbal status, bedbound status, dysphagia 3 diet with thin liquids, DM2 requiring insulin, chronic CHF, HLD, depression, osteoporosis, vitamin D deficiency,
PVD, venous insufficiency
#Sigmoid colitis
#Leukocytosis with bandemia
Continue IV Zosyn D3
#Dark stools
#Anemia
Patient is on iron twice a day
Appreciate GI input, no signs of active bleeding, recommend PPI 40 twice daily inpt, then change to once daily upon discharge
Heme pos stool, hemoglobin 11.5 today, was 13.9 upon admission
Suspect secondary to dilution as she was dry upon admission with LINDSEY
Continue to monitor for now
#Supratherapeutic INR
#Atrial fibrillation on Coumadin
INR 6.48 upon admission, normal today status post vitamin K 5 mg IV on 02/14
Continue to hold Coumadin for now
Increase metoprolol to 75 mg twice a day for rate control
Holding diltiazem due to soft BP
# Positive blood cultures
02/15/2024 blood culture growing gram-positive cocci
Possibly contaminant, repeat blood cultures today
Already on antibiotics for the above
#Acute kidney injury
Improving w/ IVFs
Due to dehydration, continue IV fluids, trend creatinine
No nephrotoxic drugs/NSAIDs
#Urinary tract infection ruled out
Urine cultures growing 50,000 colonies of gram-negative rods
#Essential hypertension
Hold spironolactone. Continue metoprolol for rate control
Resume diltiazem for rate control
#Diabetes
A1C 6.6
Continue glargine 4 units at bedtime, sliding scale insulin
#Dementia
#Functional quadriplegia
#Dysphagia
#Depression
Nonverbal at baseline, cleared by SPL for minced/moist diet
Continue Remeron
From [facility]
DVT prophylaxis�resume Coumadin
DNR
Updated daughter on phone 02/15
Total time spent to see the patient on the floor, examine the patient, review data and lab results, discuss treatment plan with patient, nursing staff around 50 minutes.
Physical Exam
General: No acute distress
HEENT: Normocephalic, Atraumatic, EOMI, MMM
Respiratory: Clear to Auscultation bilaterally
Cardiac: Normal S1/S2, Regular Rate and Rhythm
GI: Soft, Nontender, Nondistended, Normal Bowel Sounds
Extremities: No Clubbing, Cyanosis, or Edema
Neuro: Nonverbal, pleasantly confused
Anticipated Discharge: 24 - 48 hours
Subjective/Interval History
-
Date of Service: February 16, 2024
Patient having dark stools, likely from iron. She is tolerating her diet. No fever, no vomiting.
Objective Data
-
Labs:
Laboratory Results
02/16/24 02/16/24
05:13 13:00
WBC 10.4
Hgb 12.7 Cancelled
Hct 38.0
Plt Count 161
PT 16.3 H
INR 1.26 D
Sodium 142
Potassium 3.9
Chloride 100
Carbon Dioxide 29
BUN 95 H
Creatinine 1.8 H
Glucose 216 H
Calcium 8.5
Vital Signs:
Vital Signs
Temp Pulse Resp BP Pulse Ox
97.9 F 94 18 126/62 94
02/16/24 11:00 02/16/24 11:00 02/16/24 11:00 02/16/24 11:00 02/16/24 11:00
I&O
02/15/24 02/16/24 02/17/24
06:59 06:59 06:59
Intake Total 1000 / 1000
Balance 1000 / 1000
[2024-02-17 09:22] LABS: Hemoglobin 11.5 g/dL (12.0-16.0)
[2024-02-17] MEDS: ZOSYN 50 IV ×3 (09:43→19:50)
[2024-02-17] MEDS: PROTONIX IV 40 MG IV ×2 (09:44→19:50)
[2024-02-17] MEDS: NSS (PRESERVATIVE FREE) 10 ML IV ×2 (09:44→19:50)
[2024-02-17] MEDS: LOPRESSOR 50 MG PO (09:44)
[2024-02-17] MEDS: KCL 20 MEQ PO (09:44)
[2024-02-17] MEDS: NOVOLOG FLEXPEN-LOW RESISTANCE 1 UNITS SC (09:46)
[2024-02-17 11:00] VITALS: BP 98/58
[2024-02-17 12:06] LABS: Glucose - Point of Care 231 mg/dl (70-99)
[2024-02-17] MEDS: NOVOLOG FLEXPEN-LOW RESISTANCE 2 UNITS SC ×2 (12:50→17:25)
[2024-02-17] MEDS: CARDIZEM CD PO (12:53)
[2024-02-17] MEDS: LOPRESSOR 25 MG PO (12:56)
[2024-02-17 15:00] VITALS: BP 123/59
[2024-02-17 17:17] LABS: Glucose - Point of Care 200 mg/dl (70-99)
[2024-02-17 19:00] VITALS: BP 107/58
[2024-02-17] MEDS: LOPRESSOR 75 MG PO (19:51)
[2024-02-17 21:44] LABS: Glucose - Point of Care 200 mg/dl (70-99)
[2024-02-17] MEDS: LANTUS 0.04 UNITS SC (21:53)
[2024-02-17 23:00] VITALS: BP 127/68
[2024-02-18] MEDS: ZOSYN 50 IV (01:28)
[2024-02-18 03:00] VITALS: BP 113/63
[2024-02-18 06:00] VITALS: BMI 29.1
[2024-02-18 07:00] VITALS: BP 108/62
[2024-02-18 07:00] LABS: Hemoglobin 10.3 g/dL (12.0-16.0); Mean Corp Hgb Conc. 33.2 g/dL (33.0-37.0); Mean Corpuscular Hgb 32.7 pg (27.0-31.0); Mean Corpuscular Volume 98.4 fL (81.0-99.0); Mean Platelet Volume 11.3 fL (7.4-10.4); Platelet Count 146 10^3/uL (130-400); Red Blood Cell Count 3.15 10^6/uL (4.20-5.40); Red Cell Dist. Width 13.8 % (11.5-14.5)
[2024-02-18 07:02] LABS: INR 1.49; PT 18.3 Sec (11.4-14.6)
[2024-02-18 07:23] LABS: ALT (SGPT) 20 U/L (0-35); AST (SGOT) 22 U/L (14-36); Albumin 2.6 g/dl (3.5-5.0); Alkaline Phosphatase 64 U/L (38-126); Blood Urea Nitrogen 52 mg/dl (7-17); Calcium 7.4 mg/dl (8.4-10.2); Carbon Dioxide 30 mmol/L (22-30); Chloride 96 mmol/L (98-107); Direct Bilirubin 0.3 mg/dl (0.0-0.4); Estimated Creatinine Clearance 38 ml/min; Glucose 144 mg/dl (70-99); Potassium 3.5 mmol/L (3.5-5.1); Sodium 135 mmol/L (135-145); Total Bilirubin 0.8 mg/dl (0.2-1.3); Total Protein 5.2 g/dl (6.3-8.2); eGFR 54.19
[2024-02-18 08:08] LABS: Glucose - Point of Care 131 mg/dl (70-99)
[2024-02-18] MEDS: NOVOLOG FLEXPEN-LOW RESISTANCE SC (08:10)
--- NOTE | 2024-02-18 08:41 | W.PN.HOSP.TC ---
Today's Communication/Plan
-
Discharge today back to [facility]
Assessment / Plan
Assessment / Plan
88-year-old female sent from [facility] where she has resided since March 2018 for reported several days of diarrhea vomiting and weakness. Nurse reports she had black tarry like stool that was heme positive here in the ER. She
has had no episodes of vomiting while here. It appears she had lab work done on 02/05/2020 for her Coumadin was dropped to 1 mg daily until 02/19/2024 I am unsure of last dose. She is very lethargic sleeping will not open eyes although she will
move arms and readjust herself in bed she typically eats dysphagia 3 diet with thin liquids according to [facility] record and swallows pills orally although is completely unable to do that at present time due to extreme lethargy with inability to
follow commands. Her primary language is Bahraini according to chart. skilled nursing denied fever, chills, diaphoresis, cough. Patient's mouth appears somewhat moist with manual opening, she does not grimace when I palpate her abdomen. She has past
medical history of paroxysmal A-fib on Coumadin, CKD stage Sandi, benign HTN, dementia with nonverbal status, bedbound status, dysphagia 3 diet with thin liquids, DM2 requiring insulin, chronic CHF, HLD, depression, osteoporosis, vitamin D deficiency,
PVD, venous insufficiency
#Sigmoid colitis
#Leukocytosis with bandemia
Currently on IV Zosyn, will transition to Augmentin to complete a 7-day course
#Dark stools
#Anemia
Patient is on iron twice a day
Appreciate GI input, no signs of active bleeding, recommend PPI 40 twice daily inpt, then change to once daily upon discharge
Heme pos stool, hemoglobin 10.3 today, was 13.9 upon admission
Suspect secondary to dilution as she was dry upon admission with LINDSEY, however cannot rule out microscopic blood loss
Discussed with daughter, who wishes patient to remain on Coumadin 1 mg daily, will resume 02/18
#Supratherapeutic INR
#Atrial fibrillation on Coumadin
INR 6.48 upon admission, normal today status post vitamin K 5 mg IV on 02/14
Increase metoprolol to 75 mg twice a day for rate control
Holding diltiazem due to soft BP
Discussed with daughter, who wishes patient to remain on Coumadin 1 mg daily - will resume 02/18
# Positive blood cultures
02/15/2024 blood culture growing gram-positive cocci
Possibly contaminant, repeat blood cultures NTD
Already on antibiotics for the above
#Acute kidney injury
Improving w/ IVFs
Due to dehydration, continue IV fluids, trend creatinine
No nephrotoxic drugs/NSAIDs
#Urinary tract infection ruled out
Urine cultures growing 50,000 colonies of gram-negative rods
#Essential hypertension
Hold spironolactone. Continue metoprolol for rate control
Resume diltiazem for rate control
#Diabetes
A1C 6.6
Continue glargine 4 units at bedtime, sliding scale insulin
#Dementia
#Functional quadriplegia
#Dysphagia
#Depression
Nonverbal at baseline, cleared by SPL for minced/moist diet
Continue Remeron
From [facility]
DVT prophylaxis�SCDs
DNR
Updated daughter on phone 02/17
Physical Exam
General: No acute distress
HEENT: Normocephalic, Atraumatic, EOMI, MMM
Respiratory: Clear to Auscultation bilaterally
Cardiac: Normal S1/S2, Regular Rate and Rhythm
GI: Soft, Nontender, Nondistended, Normal Bowel Sounds
Extremities: No Clubbing, Cyanosis, or Edema
Neuro: Nonverbal, pleasantly confused
Anticipated Discharge: Today
Subjective/Interval History
-
Date of Service: February 18, 2024
Nursing staff reports 2 dark stools overnight, appears iron like. No fever, no vomiting. She is tolerating her diet.
Objective Data
-
Labs:
Laboratory Results
02/18/24
06:32
WBC 10.0
Hgb 10.3 L
Hct 31.0 L
Plt Count 146
PT 18.3 H
INR 1.49
Sodium 135
Potassium 3.5
Chloride 96 L
Carbon Dioxide 30
BUN 52 H
Creatinine 1.0
Glucose 144 H
Calcium 7.4 L
Total Bilirubin 0.8
AST 22
ALT 20
Alkaline Phosphatase 64
Vital Signs:
Vital Signs
Temp Pulse Resp BP Pulse Ox
97.4 F 75 22 113/63 96
02/18/24 03:00 02/18/24 03:00 02/18/24 03:00 02/18/24 03:00 02/18/24 03:00
I&O
02/17/24 02/18/24 02/19/24
06:59 06:59 06:59
Intake Total 1540 / 1540
Balance 1540 / 1540
[2024-02-18] MEDS: LOPRESSOR 75 MG PO (09:28)
[2024-02-18] MEDS: PROTONIX IV 40 MG IV (09:29)
[2024-02-18] MEDS: NSS (PRESERVATIVE FREE) 10 ML IV (09:29)
[2024-02-18] MEDS: AUGMENTIN 875 MG/125 MG 1 TABLET PO (09:38)
[2024-02-18] MEDS: KCL 20 MEQ PO (09:38)
[2024-02-18] MEDS: ZOSYN IV (09:44)
[2024-02-18] MEDS: 0.45%NACL IV (10:30)
[2024-02-18 11:00] VITALS: BP 94/67
[2024-02-18] MEDS: LR 500 IV (11:55)
[2024-02-18 12:04] LABS: Glucose - Point of Care 208 mg/dl (70-99)
[2024-02-18] MEDS: NOVOLOG FLEXPEN-LOW RESISTANCE 2 UNITS SC (12:14)
--- NOTE | 2024-02-18 12:15 | CM ---
Addendum entered by Zenaida Rodriguez 02/18/24 12:47:
6pm transport
Update to attending, dtr and SNF
Clinicals sent to [facility] via [facility]
Original Note:
CM reviewed pt with Dr Beltran- librado for dc
Ashtyn/admissions confirmed ot able to return today
Update to dtr/Annette over phone
IMM verbally reviewed- copy declined
Transport forms completed
Pt will requite BLS
Discharge Disposition- return [facility] SN[facility] via BLS
Phone- [phone] Fax- [phone]
[2024-02-18 15:00] VITALS: BP 98/53
--- NOTE | 2024-02-18 15:06 | W.DCSUMMARY ---
Discharge Summary
Discharge Data
Date of Admission: 02/15/24
Date of Discharge: 02/18/24
-
Pending Results: No
Hospital Course
Discharge diagnosis:
Sigmoid colitis
Leukocytosis with bandemia
Dark stools
Anemia
Supratherapeutic INR
Atrial fibrillation on Coumadin
Acute kidney injury
Urinary tract infection ruled out
Essential hypertension
Diabetes
Dementia
Functional quadriplegia
Dysphagia
Depression
Consults: GI
CT abdomen and pelvis:
MARKEDLY LIMITED STUDY WITHOUT ORAL CONTRAST, WITHOUT INTRAVENOUS CONTRAST AND A RESULT OF MARKED BEAM HARDENING ARTIFACT FROM BILATERAL UPPER EXTREMITIES.
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 Cannot exclude
accompanying intervening small abnormal focal fluid collection. Repeat study with oral contrast/delayed imaging may be helpful for more complete evaluation.
Cholelithiasis.
Small simple left renal cyst. No findings to suggest bilateral obstructive uropathy.
Marked thickening of the wall predominantly of distal small bowel seen in the right lower quadrant extending into the true pelvis abutting the sigmoid colon
Lobulated low-attenuation cystic area with peripheral calcification in the right retroperitoneum measuring 5 cm in greatest dimension, well-defined. One differential diagnostic possibility would be an old calcified hematoma.
Hospital course:
88-year-old female with a past medical history of atrial fibrillation on Coumadin, diabetes, dementia, functional quadriplegia, dysphagia, and depression was sent from [facility] for dark stools with concerns for bleeding. Patient
is on iron twice a day. Her INR was supratherapeutic upon admission at 6.48. Her Coumadin was held. She received vitamin K, her INR normalized.
Patient was seen in conjunction with GI. GI states there is no overt bleeding. Her dark stools are likely from the iron. GI signed off. GI recommends Protonix 40 mg twice a day while in the hospital, and discharge on Protonix 40 mg p.o. daily.
Patient had acute kidney injury from dehydration. She received IV fluids, and her creatinine normalized.
Patient was treated with IV Zosyn for her sigmoid colitis. Urinary cultures grew out 50,000 colonies of E. coli. She does not have a UTI. Patient was transitioned from Zosyn to Augmentin to complete a 7-day course.
Patient's blood pressure was soft. Her spironolactone and diltiazem were discontinued. Her metoprolol was increased to 75 mg twice a day for heart rate control.
Patient's hemoglobin was monitored, and trended down to 10.3, it was 13.9 upon admission. Suspect this is secondary to dilution, as we have given her 5 kg of IV fluids. However microscopic blood loss cannot be ruled out. This was discussed with
the daughter. Risks and benefits of resuming Coumadin was discussed with the daughter. Daughter wishes patient to resume her Coumadin knowing the risks. Her Coumadin can be resumed on 02/19/2024. She needs a repeat CBC, BMP, INR check on
02/21/2024.
Patient's mentation returned to baseline. She will be discharged back to her detention. She needs to follow-up with her primary care doctor in 1 week.
Disposition: correction
Discharge planning: Required 49-minute
Discharge Plan
-
Patient Disposition: Long-Term/SNF
Discharge Diagnosis/Procedures: Sigmoid colitis, anemia, dehydration, acute kidney injury, dementia, dysphagia
Condition: Fair
Diet: Grind all food
Additional Diets: Minced/moist diet
Activity: As tolerated
Blood Work: CBC, BMP, INR on 02/20
Activity Restrictions/Additional Instructions:
Take Augmentin twice a day for 4 more days for your sigmoid colitis.
Iron can cause dark stools and constipation. Recommend discontinuing.
Follow-up with your primary care doctor in 1 week.
Referrals:
Laurent Jensen MD [Family Provider] - in one week
Prescriptions:
New
pantoprazole 40 mg tablet,delayed release (DR/EC)
40 mg PO DAILY Qty: 30 0RF
amoxicillin-pot clavulanate 875-125 mg Tablet
1 tab PO Q12 4 Days Qty: 0 0RF
Continued
acetaminophen 325 MG tablet
650 mg PO Q4H PRN (Reason: mild pain/temp>100)
atorvastatin 20 MG tablet
20 mg PO DAILY
mirtazapine 15 MG tablet
7.5 mg PO HS
cholecalciferol (vitamin D3) 2,000 UNITS tablet
4,000 unit PO DAILY
linagliptin 5 mg Tablet
5 mg PO DAILY
magnesium oxide 400 mg magnesium Tablet
400 mg PO BID
Fiasp FlexTouch U-100 Insulin 100 unit/mL (3 mL) Insulin Pen
6 unit SC NOON
trolamine salicylate [Aspercreme] 10 % Cream
1 applic TOPICAL BID
Rx Instructions:
right knee
insulin glargine [Lantus Solostar U-100 Insulin] 100 unit/mL (3 mL) Insulin Pen
8 unit SC HS
Fiasp FlexTouch U-100 Insulin 100 unit/mL (3 mL) Insulin Pen
7 unit SC QPM
Fiasp FlexTouch U-100 Insulin 100 unit/mL (3 mL) Insulin Pen
4 unit SC DAILY
Changed
metoprolol tartrate 50 mg tablet
75 mg PO BID Qty: 0 0RF
Held
warfarin [Jantoven] 1 MG tablet
1 mg PO QPM
Hold Instructions: Resume on 02/19/24.
Discontinued
ferrous sulfate [FeroSul] 325 MG tablet
325 mg PO BID
bumetanide 0.5 mg Tablet
0.5 mg PO DAILY
diltiazem HCl 120 mg capsule,extended release 24hr
120 mg PO DAILY
spironolactone 50 mg Tablet
50 mg PO DAILY
Discharge Orders:
Discharge Patient (As Directed); Ordered 02/18/24
Ordered By: Jaskaran Beltran
Discharge Date and Time
Print Language: KYRGYZ
[2024-02-18] MEDS: LR IV (16:10)
[2024-02-18 16:51] LABS: Glucose - Point of Care 166 mg/dl (70-99)
[2024-02-18] MEDS: NOVOLOG FLEXPEN-LOW RESISTANCE 1 UNITS SC (16:55)
== END 2024-02-18 18:40 | DRG 377 ==
LOC: 4 WEST ACU 13:28
PROVIDERS: Clinical Nurse Specialist Family Health; ADMITTING PHYSICIAN Student in an Organized Health Care Education/Training Program; ATTENDING PHYSICIAN Family Medicine; CONSULT PHYSICIAN Student in an Organized Health Care Education/Training Program; EMERGENCY PHYSICIAN Emergency Medicine; FAMILY PHYSICIAN Internal Medicine
DX: K92.2 Gastrointestinal hemorrhage, unspecified (principal); R53.2 Functional quadriplegia; N17.9 Acute kidney failure, unspecified; D68.9 Coagulation defect, unspecified; I13.0 Hypertensive heart and chronic kidney disease with heart failure and stage 1 through stage 4 chronic kidney disease, or unspecified chronic kidney disease; F03.93 Unspecified dementia, unspecified severity, with mood disturbance; N18.4 Chronic kidney disease, stage 4 (severe); I42.8 Other cardiomyopathies; N39.0 Urinary tract infection, site not specified; I48.0 Paroxysmal atrial fibrillation; K52.9 Noninfective gastroenteritis and colitis, unspecified; Z79.01 Long term (current) use of anticoagulants; T45.515A Adverse effect of anticoagulants, initial encounter; E11.22 Type 2 diabetes mellitus with diabetic chronic kidney disease; F32.A Depression, unspecified; Z74.01 Bed confinement status; E78.00 Pure hypercholesterolemia, unspecified; Z66 Do not resuscitate; K80.20 Calculus of gallbladder without cholecystitis without obstruction
CPT/HCPCS: 71046; 74176; 80048; 80053; 81003; 81015; 82248; 82962; 83036; 83735; 84100; 84484; 85018; 85025; 85027; 85610; 86850; 86870; 86900; 86901; 86905; 87040; 87045; 87046; 87077; 87086; 87150; 87186; 87205; 87324; 87328; 87329; 87427; 87449; 92610; 93005; 96365; 96366; 96376; 99291

== ENCOUNTER 2024-03-26 02:50 | Inpatient (IN) | payer MEDICARE, OTHER, SELFPAY ==
[2024-03-25 21:45] VITALS: BP 118/80
[2024-03-25 21:47] VITALS: BP 118/80
[2024-03-25 22:00] VITALS: BP 106/77
--- NOTE | 2024-03-25 22:05 | ED.GENMED ---
History of Present Illness
General
Chief Complaint: Fever
Source: patient
Exam Limitations: altered mental status and dementia
Time Seen by Provider: 03/25/24 21:39
Nursing documentation reviewed up to this point in time: agreed with
History of Present Illness
History of Present Illness:
alf patient presents with fever cough diarrhea onset is unclear, apparently suffers from dementia, not offering much history, here she has loose stools, lips are dry does make eye contact when I try to speak with her apparently had a C.
difficile test at her [facility] details of which are unclear
Past History
Past History
ED Past Medical History: Arrthythmia (AFIB), HTN, IDDM and Other (dementia)
Social History
Tobacco: Non-smoker
Alcohol: None
Drug: None
Personal: (Review of)
Living: fdc
Employment: Other
Family History
Family History: Unable to obtain
Review of Systems
Review of Systems
All Other Systems: Not applicable
Constitutional: Reports fever
Phy Exam
Physical Exam
Physical Exam:
Physical Exam
General: Acute on chronically ill elderly female febrile
Neck: Positive eye contact dry lip
Heart: Tachycardic annular
Lungs: Diminished bilateral
Abdomen: Soft nontender in the diaper no feeding tube
Neuro: Positive eye contact nonverbal
Skin: no rash
Psychiatric: Unable to assess
Extremities: no edema.
Sepsis
Sepsis Screening
Sepsis Assessment: Sepsis Ruled Out
Sepsis Screen
Sepsis Screen: Sepsis Ruled Out
Date: 03/27/24
Time: 00:39
Course
Orders/Labs/Results
Orders:
Orders
03/25/24 21:44
Electrocardiogram (*1) Urgent
Reason for Study: Shortness of Breath
CR Chest Single View Urgent
Reason For Exam: cough
03/25/24 21:45
EKG- Treatment ONCE
03/25/24 21:50
COVID-19 Antigen Urgent
Source: Nasal Swab
Complete Blood Count/With Diff Urgent
Comprehensive Metabolic Panel Urgent
C difficile Antigen & Toxins Urgent
ROBBIN Source: ST
Specimen Description:
Date Specimen was Collected: 03/25/24
Time Specimen was Collected: 21:45
Comment: Add on by Bill Schmitz
Influenza A+B Rapid Molecular Urgent
ROBBIN Source: Nasal Swab
Specimen Description:
Norovirus by PCR Urgent
ROBBIN Source: Feces/Stool
Specimen Description:
Date Specimen was Collected: 03/25/24
Time Specimen was Collected: 21:45
Stool Culture Urgent
ROBBIN Source: ST
Specimen Description:
Date Specimen was Collected: 03/25/24
Time Specimen was Collected: 21:45
Comment: Add on by Bill Schmitz
03/25/24 21:59
Acetaminophen 1000MG/100Ml [Ofirmev] 1,000 mg in 100 ml IV ONCE
Acetaminophen IV Indication:: ED Narcotic Naive Pt-ONCE
03/25/24 22:00
0.9% Sodium Chloride 1000 ml [Nss] 1,000 ml IV BOLUS
03/25/24 22:33
Lactic Acid Urgent
Blood Culture Urgent
ROBBIN Source: Blood/Venous
Specimen Description:
03/25/24 23:54
0.9% Sodium Chloride 1000 ml [Nss] 1,000 ml IV BOLUS
03/26/24 02:27
0.9% Sodium Chloride 1000 ml [Nss] 1,000 ml IV BOLUS
03/26/24 02:30
Admit/Transfer Patient As Directed
Co-Sign Provider:
Level of Care: Inpatient admission
Assign to:: IMU- Intermediate Care
Physician / Group: Nadir
Diagnosis: Diarrhea, Sepsis
Reason for Hospitalization: Diarrhea, Sepsis
Expected length of stay greater than two midnights?: Yes
ELOS- Estimated Length of Stay in days: 4
I certify the patient meets the requirements for IP care: Yes
PRN Pain Medication Management As Directed
May give lesser potent ordered pain med per pt: Yes
preference::
Protocol:: Medication orders for pain may be administered in a
manner that supports deferring to patient preference
when the pt is:
- Requesting an ordered lesser potent pain medication.
Least to most potent pain medications are defined
as: acetaminophen < NSAID < tramadol < opioids
(morphine, oxycodone, hydromorphone).
- Requesting a lesser dose of the same medication IF
ORDERED.
- Requesting a less intrusive route of administration
if both routes are prescribed by the provider (PO <
IV).
03/26/24 02:31
Code Status As Directed
Resuscitation Status: Do not resuscitate
Based on pt advanced directive or healthcare POA form: Yes
03/26/24 02:32
DNR Bracelet Application ONCE
03/26/24 02:56
PT/INR [Prothrombin Time] Urgent
03/26/24 03:40
Acetaminophen [Tylenol] 650 mg PO Q4HPRN PRN
Dextrose 50%-Water [Dextrose 50% Syringe] 12.5 grams IV [id number] PRN
Glucagon [GlucaGen] 1 mg IM PRN PRN
Iohexol [Omnipaque] See Protocol PO NOW STA
Lactated Ringers [Lr] 1,000 ml IV 125 mls/hr
NORepinephrine 4 MG/250 ML [Levophed] 4 mg in 250 ml IV PER PROTOCOL
Initial dose in mcg/min, then titrate:: 4
Titrate to keep:: MAP > 65 mmHg
Titrate by mcg/min:: 1-2 mcg/min
Frequency of titrations (minutes):: 5
Maximum dose in ICU in mcg/min:: 30
Maximum dose in IMU in mcg/min:: 8
Maximum dose in IVU in mcg/min:: 4
Begin to taper infusion when:: Remained at goal for 4hrs
Taper by mcg/min:: 1-2 mcg/min
Frequency of taper (minutes) if patient maintains goal:: 30
Taper to off?: Yes
If infusion off & no longer maintaining goal:: Contact Provider
Warfarin [Coumadin] 0.5 mg PO Q48H
Warfarin [Coumadin] 1 mg PO Q48H
03/26/24 03:40
Activity As Directed
Activity Level: Bedrest
Bedside Glucose Monitoring As Directed
Frequency: AC&HS
Additional Instructions:: Change to q6h if pt on TPN, tube feeding or not eating
Bladder Scan As Directed
Follow Bladder Retention/Intermittent Cath Algorithm?: Yes
PRN if no void in __ hours: 6
Frequency: Per Retention Algorithm
If Bladder Scan Result >: 400
then:: Straight cath
I/O [Intake/ Output] As Directed
Frequency: Per unit guidelines
Precautions As Directed
Type of Precautions: Contact
Straight Cath As Directed
Frequency: Per Retention Algorithm
Additional Instructions: straight cath as needed per acute urinary retention algorithm for 24 hrs
Additional Instructions: for bladder scan greater than 400 mL
Vital Signs As Directed
Frequency: Per unit guidelines
Weight As Directed
Frequency: Daily
Oxygen Therapy [O2 Therapy] [RESP] Routine
Titrate/Wean O2 to maintain O2 sat greater than (%): 94
Ot Eval And Treat Routine
PT Consult [Pt Eval And Treat] Routine
Activity Level: Ambulate
With Assistance
03/26/24 04:00
Ondansetron Injectable [Zofran] 4 mg IV Q6HPRN PRN
12/17/24 Breakfast
BRAT
At Your Request: Non-Participating
03/26/24 06:06
Complete Blood Count/No Diff IN AM
Glycohemoglobin (HgbA1c) IN AM
Magnesium IN AM
TSH Reflex To Free T4 Routine
03/26/24 07:30
Insulin Aspart Corrective Low [Novolog Flexpen-Low Resistance] See Protocol SC AC
03/26/24 08:00
Atorvastatin [Lipitor] 20 mg PO DAILY
metoprolol tartrate 50 mg PO BID
03/27/24 06:00
Prothrombin Time IN AM
03/28/24 06:00
Prothrombin Time IN AM
Abnormal Lab Results
03/25/24
21:50
RBC 3.52 L 10^6/uL
(4.20-5.40)
Hgb 11.0 L g/dL
(12.0-16.0)
Hct 33.6 L %
(37.0-47.0)
MCH 31.3 H pg
(27.0-31.0)
MCHC 32.7 L g/dL
(33.0-37.0)
Absolute Monos (auto) 1.5 H 10^3/uL
(0.1-0.6)
Lymphocytes % 16.4 L %
(20.5-51.1)
Monocytes % 15.7 H %
(1.7-9.3)
Sodium 133 L mmol/L
(135-145)
BUN 21 H mg/dl
(7-17)
Glucose 198 H mg/dl
(70-99)
Calcium 7.9 L mg/dl
(8.4-10.2)
Total Protein 5.6 L g/dl
(6.3-8.2)
Albumin 2.8 L g/dl
(3.5-5.0)
03/25/24 21:50
03/25/24 21:50
Vital Signs
Initial and Last Documented VS:
Initial Vital Signs
Pulse Resp BP Pulse Ox
126 26 118/80 96
03/25/24 21:45 03/25/24 21:45 03/25/24 21:45 03/25/24 21:45
Last Documented Vital Signs
Temp Pulse Resp BP Pulse Ox
97.8 F 104 19 118/77 97
03/26/24 22:50 03/26/24 21:38 03/26/24 18:00 03/26/24 21:38 03/26/24 14:12
MDM/Problems Addressed
Differential Diagnosis Includes:
Viral syndrome norovirus infectious diarrhea pneumonia influenza COVID
MDM/Problems Addressed:
Fever cough diarrhea
Chronic conditions affecting care: DM, Arrhythmia and Neurological disorder
Acute Exacerbation and/or Progression of Chronic Illness: DM and Arrhythmia
*Radiology
Radiology exam reviewed: preliminary read by ED provider
*Pulse Oximetry
Patient hypoxic: no
*EKG
Interpreted by ED Provider?: Yes
Interpretation: abnormal
Comparison EKG: no comparison EKG present
Heart Rate: 140
Rate: tachycardiac
Rhythm: a-fib
Ischemia: non-specific ST changes
*Iridologist Interpretation
Rate: tachycardiac
Interpretation: abnormal
Heart Rate: 140
Rhythm: a-fib
*Critical Care Note
Total Time (30-74mins, 75-104mins- exclusive of procedures): 15
ED Attending Note
-
Portions of this chart may have been created with voice recognition software.� Occasional wrong word or��sound alike� substitutions may have occurred due to the inherent limitations of voice recognition software.
Discharge Plan
Departure
Patient Disposition: Admit
Date of Disposition: 03/26/24
Time of Disposition: 01:00
Admit to: Med/Surg
Presentation/result/management discussed w/ accepting MD/DO: Hospitalist
Patient with high blood pressure during this ER visit?: No
Condition: Fair
Covid-19: Negative COVID-19
Discharge Problem:
Atrial fibrillation with RVR, Acute diarrhea
Interventions
Interventions:
*Risk Screen - Suicide Last Done: 03/26/24 00:45
*General Assessment Last Done: 03/25/24 21:47
*Neglect/Abuse Screening Last Done: 03/26/24 00:45
ED- Fall Risk Assessment Last Done: 03/25/24 22:43
*ED COVID-19 Vaccine History Last Done: 03/26/24 00:39
*Nursing Disposition Last Done: 03/26/24 10:15
ED- Neurological Assessment Last Done: 03/26/24 00:45
ED-Skin Assessment Last Done: 03/26/24 00:45
Discharge Date and Time
Discharge Date/Time: 03/26/24 10:16
[2024-03-25] MEDS: NSS 1000 IV (22:18)
[2024-03-25] MEDS: OFIRMEV 100 IV (22:18)
[2024-03-25 22:46] LABS: % Basophils 0.5 % (0-2); % Eosinophils 0.3 % (0-6); % Immature Granulocytes 0.3 % (0-0.5); % Lymphocytes 16.4 % (20.5-51.1); % Monocytes 15.7 % (1.7-9.3); % Neutrophils 66.8 % (42.2-75.2); Absolute Basophils 0.1 10^3/uL (0-0.2); Absolute Lymphocytes 1.5 10^3/uL (1.2-3.4); Absolute Monocytes 1.5 10^3/uL (0.1-0.6); Absolute Neutrophils 6.3 10^3/uL (1.4-6.5); Hematocrit 33.6 % (37.0-47.0); Mean Corp Hgb Conc. 32.7 g/dL (33.0-37.0); Mean Corpuscular Hgb 31.3 pg (27.0-31.0); Mean Corpuscular Volume 95.5 fL (81.0-99.0); Mean Platelet Volume 10.4 fL (7.4-10.4); Nucleated Red Blood Cells % 0 %; Platelet Count 281 10^3/uL (130-400); Red Blood Cell Count 3.52 10^6/uL (4.20-5.40); Red Cell Dist. Width 13.9 % (11.5-14.5); White Blood Cell Count 9.4 10^3/uL (4.8-10.8)
[2024-03-25 22:57] LABS: ALT (SGPT) 13 U/L (0-35); AST (SGOT) 17 U/L (14-36); Albumin 2.8 g/dl (3.5-5.0); Alkaline Phosphatase 65 U/L (38-126); Blood Urea Nitrogen 21 mg/dl (7-17); Calcium 7.9 mg/dl (8.4-10.2); Carbon Dioxide 28 mmol/L (22-30); Chloride 98 mmol/L (98-107); Glucose 198 mg/dl (70-99); Potassium 4.3 mmol/L (3.5-5.1); Sodium 133 mmol/L (135-145); Total Bilirubin 0.5 mg/dl (0.2-1.3); Total Protein 5.6 g/dl (6.3-8.2); eGFR > 60.00
[2024-03-25 22:57] LABS: Lactic Acid 1.9 mmol/L (0.7-2.0)
[2024-03-25 23:02] LABS: COVID-19 Antigen Negative (Negative)
[2024-03-25 23:29] VITALS: BP 90/61
[2024-03-25 23:46] VITALS: BP 89/54
[2024-03-26] VITALS (23 sets, daily range): BP systolic 81–132; BP diastolic 51–95; BMI 26.4; BMI 30.6
[2024-03-26] MEDS: NSS 1000 IV ×2 (00:20→02:41)
--- NOTE | 2024-03-26 02:35 | HPS.HSE ---
Family Physician
-
Family Physician: Laurent Jensen MD
Chief Complaint
-
Altered Mental Status / Diarrhea
History of Present Illness
Patient is an 88y F with PMH significant for A-Fib, cardiomyopathy, dementia and DM-II who presents to ED from local [facility] for evaluation of mental status change and diarrhea. Report from [facility] was that patient appeared to be 'shaking' this evening.
Her eyes were closed and she was not responding as she usually does. She had a single episode of loose, non-bloody stool at the [facility]. Temp to 102 degrees. Patient was transported to ED for further evaluation.
Here in the ED, patient is noted to be febrile and poorly responsive. She will grimace to pain, but does not open eyes, answer questions or follow commands.
Patient had a similar presentation last month and was hospitalized for sigmoid colitis. She was treated with IV abx at that time and discharged on an additional 7 days of Augmentin.
Her medications were also adjusted due to hypovolemia / hypotension during that stay.
Patient is unable to contribute any additional details to this history.
Medical History
Past Medical History
Past Medical History: Reports Other
Additional Past Medical History:
A-Fib on Coumadin
Hypertension
Chronic CHF / Cardiomyopathy
Dementia
Dysphagia
DM-II
CKD IV (?)
Depression
Osteoporosis
PVD/venous insufficiency
Vitamin D deficiency
Past Surgical History: Reports Other
Additional Past Surgical History:
Hemorrhoidectomy
Social History
Tobacco: Non-smoker
Alcohol: None
Drug: None
Personal: Single
Living: [place] ([place])
Employment: Retired
Family History
Family History: Unable to Obtain
Allergies / Home Medications
Allergies reflects when Allergies were last updated in [facility].
Home Medications with original date entered in [facility]
Allergy/Medication List:
Allergies
Allergy/AdvReac Type Severity Reaction Status Date / Time
No Known Allergies Allergy Verified 03/25/24 21:46
Home Medications
acetaminophen 325 mg tablet 650 mg PO Q4HPRN PRN mild pain/temp>100 04/05/18
atorvastatin 20 mg tablet 20 mg PO DAILY High Cholesterol 04/05/18
cholecalciferol (vitamin D3) 50 mcg (2,000 unit) tablet 4,000 unit PO DAILY Supplement 04/05/18
mirtazapine 15 mg tablet 7.5 mg PO HS Depression 04/05/18
linagliptin 5 mg tablet 5 mg PO DAILY Diabetes 06/18/22
magnesium oxide 400 mg PO BID Supplement 06/18/22
insulin aspart (niacinamide)(U-100) 100 unit/mL(3 mL) subcutaneous pen (Fiasp FlexTouch U-100 Insulin) 4 unit SC DAILY Diabetes 02/15/24
insulin aspart (niacinamide)(U-100) 100 unit/mL(3 mL) subcutaneous pen (Fiasp FlexTouch U-100 Insulin) 6 unit SC NOON Diabetes 02/15/24
insulin aspart (niacinamide)(U-100) 100 unit/mL(3 mL) subcutaneous pen (Fiasp FlexTouch U-100 Insulin) 7 unit SC QPM Diabetes 02/15/24
insulin glargine 100 unit/mL (3 mL) subcutaneous pen (Lantus Solostar U-100 Insulin) 8 unit SC HS Diabetes 02/15/24
trolamine salicylate 10 % topical cream (Aspercreme) 1 applic topical BID Pain 02/15/24
warfarin 1 mg tablet (Jantoven) 1 mg PO Q48H Blood Clot Prevention/Tx 02/15/24
albuterol sulfate 2.5 mg/3 mL (0.083 %) solution for nebulization 2.5 mg inhalation R Q4HPRN PRN sob/wheezing 03/25/24
bumetanide 0.5 mg tablet 0.5 mg PO DAILY 03/25/24
loperamide 2 mg capsule 2 mg PO Q8HPRN PRN diarrhea 03/25/24
metoprolol tartrate 75 mg tablet 75 mg PO BID 03/25/24
pantoprazole 40 mg granules delayed-release for susp in packet 40 mg PO AC 03/25/24
warfarin 1 mg tablet 0.5 mg PO Q48H 03/25/24
Review of Systems
-
Unable to obtain full review of systems at this time due to: Patient Non-verbal
Physical Exam
Vital Signs
Vital Signs
Temp Pulse Resp BP Pulse Ox
99.6 F 85 16 89/54 97
03/26/24 00:39 03/26/24 00:45 03/26/24 00:45 03/25/24 23:46 03/26/24 00:45
Physical Exam
General: Other (Ill-appearing 88y F. Eyes closed and does not respond to questions/ commands. Grimaces to pain.)
HEENT: Other (Very dry MM. Neck supple.)
Respiratory: Other (Decreased at bases - poor effort. Otherwise clear.)
Cardiac: S1/S2, Irregular Rhythm and Murmur (II/ FAUZIA)
GI: Other (Abdomen is softly distended. There is apparent guarding on exam. Bowel sounds present but diminished.)
Musculoskeletal: No Clubbing, No Cyanosis and No Edema
Laboratory Results
-
03/25/24 21:50
03/25/24 21:50
Laboratory Results
Lactic Acid 1.9 mmol/L (0.7-2.0) 03/25/24 22:33
Total Bilirubin 0.5 mg/dl (0.2-1.3) 03/25/24 21:50
AST 17 U/L (14-36) 03/25/24 21:50
ALT 13 U/L (0-35) 03/25/24 21:50
Alkaline Phosphatase 65 U/L (38-126) 03/25/24 21:50
Impression/Plan
-
A/P: Patient is an 88y F with PMH significant for dementia, A-Fib, CHF and DM-II who presents to ED for evaluation of fever, diarrhea and mental status change.
GI Illness
Sepsis secondary to the above
Acute TME secondary to the above
- Admit for further evaluation and treatment.
- Patient presents with fever, tachycardia, tachypnea and diarrhea suggestive of colitis / enteritis.
- Stool studies are pending.
- Certainly Norovirus is a possibility; however, given recent episode of sigmoid colitis would investigate further.
- Stool studies including CDiff and Norovirus.
- IV abx for now with Zosyn.
- Check CT A/P - try to do so with benefit of contrast for improved imaging quality compared to previous scan.
- Follow for clinical changes. Follow fever curve.
- IVF support +/- pressors if needed to maintain perfusion. Lactate normal in the ED.
- Follow for improvement in mental status with IVFs, antipyretics, abx, etc.
Permanent Atrial Fibrillation
- Stable. Rates controlled on current regimen.
- Continue metoprolol with holding parameters for BP.
- Check INR now and daily.
- Continue / adjust Coumadin as needed for stroke risk reduction.
Chronic HFpEF
- Patient with no evidence of volume overload at present - ongoing GI volume losses.
- Was restarted on bumetanide at [facility] on 03/06 - will stop again.
- Follow I/Os, daily weights, etc.
DM-II
- Stable. Continue basal insulin.
- Follow glucose and cover with SSI as needed.
CKD IV
- Listed diagnosis; however, current renal function is normal.
- Follow for changes with volume losses / diarrhea, etc.
Senile Dementia
- Baseline mental status is unclear. Reportedly non-verbal at baseline.
DVT Prophylaxis: Coumadin
Code Status: DNR
[2024-03-26] MEDS: LR 1000 IV ×3 (04:20→21:38)
[2024-03-26] MEDS: ZOSYN 50 IV ×3 (06:04→17:20)
[2024-03-26 06:35] LABS: Hematocrit 34.2 % (37.0-47.0); Hemoglobin 10.9 g/dL (12.0-16.0); Mean Corp Hgb Conc. 31.9 g/dL (33.0-37.0); Mean Corpuscular Hgb 31.2 pg (27.0-31.0); Mean Platelet Volume 10.5 fL (7.4-10.4); Platelet Count 240 10^3/uL (130-400); Red Blood Cell Count 3.49 10^6/uL (4.20-5.40); White Blood Cell Count 5.7 10^3/uL (4.8-10.8)
[2024-03-26 06:55] LABS: ALT (SGPT) 12 U/L (0-35); AST (SGOT) 19 U/L (14-36); Albumin 2.6 g/dl (3.5-5.0); Alkaline Phosphatase 60 U/L (38-126); Blood Urea Nitrogen 18 mg/dl (7-17); Calcium 7.5 mg/dl (8.4-10.2); Carbon Dioxide 26 mmol/L (22-30); Chloride 105 mmol/L (98-107); Direct Bilirubin 0.1 mg/dl (0.0-0.4); Estimated Creatinine Clearance 46 ml/min; Glucose 92 mg/dl (70-99); Magnesium 1.8 mg/dl (1.6-2.3); Sodium 136 mmol/L (135-145); Total Bilirubin 0.5 mg/dl (0.2-1.3); Total Protein 5.4 g/dl (6.3-8.2); eGFR > 60.00
[2024-03-26 07:23] LABS: TSH Reflex To Free T4 1.37 uIU/ml (0.47-4.68)
[2024-03-26 08:39] LABS: Glycohemoglobin (HgbA1c) 6.3 % (4.0-5.6)
[2024-03-26 09:25] LABS: Glucose - Point of Care 74 mg/dl (70-99)
[2024-03-26] MEDS: NOVOLOG FLEXPEN-LOW RESISTANCE SC ×3 (09:25→17:12)
[2024-03-26] MEDS: LIPITOR PO (09:34)
--- NOTE | 2024-03-26 11:10 | PTOTSP ---
Per chart review, the patient is a resident of [facility], nonverbal at baseline and bedbound. No functional goals to warrant PT evaluation, will sign off at this time.
[2024-03-26 12:01] LABS: Glucose - Point of Care 66 mg/dl (70-99)
[2024-03-26 12:23] LABS: Glucose - Point of Care 78 mg/dl (70-99)
[2024-03-26] MEDS: DESENEX/MITRAZOL/ZEASORB 1 APPLIC TOPICAL ×2 (12:46→21:35)
--- NOTE | 2024-03-26 13:52 | PTCARENOTE ---
Addendum entered by Renée Graham RN 03/26/24 14:17:
This nurse obtained history from Maria M at [facility].
Original Note:
Received patient on admission from ED via stretcher with LR infusing at 100ml/hr; afebrile with T97.5 ax. Patient awake but non-verbal; afib on monitor with HR 80s, BP 90s/60s with MAP 70s. Unknown last void; bladder scan initially 390, then 405.
Straight cath for 375 yellow urine. Accu check 66 at 11:50; patient able to drink OJ without difficulty. This nurse confirmed patient drinks thin liquids at MA. Repeat accu check 78 at 12:12. Daughter in to visit and updated on plan of care. Speech
therapist notified of consult. See worklist for full assessment, wound care and vital signs; see MAR for med administration.
--- NOTE | 2024-03-26 15:56 | PTOTSP ---
ST Acute Care Evaluation
Pt currently presents with oral, pharyngeal, and esophageal parameters that are WFL for her baseline diet of pureed solids, thin liquids, and meds crushed in puree. However, CONTACT LENS CURVE GRINDER will continue to f/u to ensure pt continues to tolerate this diet. CONTACT LENS CURVE GRINDER
will also continue to f/u to see if pt is a candidate for further diet upgrades, as pt was on more advanced diet consistencies just about a month or so ago.
Recommendations:
- DOWNGRADE pt back down to her baseline diet consistencies of PUREED SOLIDS and thin liquids with meds crushed in puree.
- Aspiration precautions: 1:1 assistance with all PO intake; HOB fully upright; small bites/sips; alternate bites/sips; check for oral clearance.
- CONTACT LENS CURVE GRINDER to f/u re: diet tolerance and to determine whether or not pt is a candidate for further diet upgrades.
[2024-03-26 16:46] LABS: Glucose - Point of Care 94 mg/dl (70-99)
[2024-03-26] MEDS: COUMADIN 1 MG PO (17:20)
[2024-03-26] MEDS: LOPRESSOR 75 MG PO (21:38)
[2024-03-26 21:48] LABS: Glucose - Point of Care 164 mg/dl (70-99)
[2024-03-26] MEDS: LANTUS 0.08 UNITS SC (22:28)
--- NOTE | 2024-03-26 23:45 | PTCARENOTE ---
Pt received from previous RN. Pt nonverbal at baseline. Smiles and nods appropriately. opens eyes to verbal stimuli and follows commands. afib on monitor. Pt inc of urine, Saturated. Bladder scan 95 ml. In stool. julián care preformed. Q2T maintained.
LR @ 125 hr. Assessment as documented. hourly rounds maintained. Call light in reach.
[2024-03-27] VITALS (13 sets, daily range): BP systolic 94–123; BP diastolic 56–88; BMI 31.1
[2024-03-27] MEDS: ZOSYN 50 IV ×4 (00:41→17:21)
[2024-03-27 05:10] LABS: % Basophils 1.3 % (0-2); % Eosinophils 2.6 % (0-6); % Immature Granulocytes 0.2 % (0-0.5); % Lymphocytes 30.3 % (20.5-51.1); % Monocytes 15.1 % (1.7-9.3); % Neutrophils 50.5 % (42.2-75.2); Absolute Basophils 0.1 10^3/uL (0-0.2); Absolute Eosinophils 0.1 10^3/uL (0-0.7); Absolute Lymphocytes 1.6 10^3/uL (1.2-3.4); Absolute Monocytes 0.8 10^3/uL (0.1-0.6); Absolute Neutrophils 2.7 10^3/uL (1.4-6.5); Hematocrit 30.9 % (37.0-47.0); Hemoglobin 10.1 g/dL (12.0-16.0); Mean Corp Hgb Conc. 32.7 g/dL (33.0-37.0); Mean Corpuscular Hgb 31.7 pg (27.0-31.0); Mean Corpuscular Volume 96.9 fL (81.0-99.0); Mean Platelet Volume 10.3 fL (7.4-10.4); Nucleated Red Blood Cells % 0 %; Platelet Count 242 10^3/uL (130-400); Red Blood Cell Count 3.19 10^6/uL (4.20-5.40); Red Cell Dist. Width 13.9 % (11.5-14.5); White Blood Cell Count 5.4 10^3/uL (4.8-10.8)
[2024-03-27 05:20] LABS: INR 2.44; PT 26.5 Sec (11.4-14.6)
[2024-03-27] MEDS: LR 1000 IV (05:29)
[2024-03-27 05:44] LABS: Glucose - Point of Care 47 mg/dl (70-99)
[2024-03-27 05:58] LABS: Blood Urea Nitrogen 14 mg/dl (7-17); Calcium 7.9 mg/dl (8.4-10.2); Carbon Dioxide 26 mmol/L (22-30); Chloride 104 mmol/L (98-107); Estimated Creatinine Clearance 53 ml/min; Glucose 38 mg/dl (70-99); Magnesium 1.8 mg/dl (1.6-2.3); Potassium 3.9 mmol/L (3.5-5.1); Sodium 134 mmol/L (135-145); eGFR > 60.00
--- NOTE | 2024-03-27 06:01 | PTCARENOTE ---
Addendum entered by Alisa Jose RN 03/27/24 06:44:
Ceramics Artist made aware. d50 given. 15 recheck reading 1119.
Original Note:
Am follow up glucose per hypoglycemic protocol reading 47. Am labs results which were drawn at same time as POC glucose resulted as 38. Ceramics Artist made aware of critical result. hypoglycemic protocol being followed. Pt provided with 40z juice, recheck
after 15 Mins reading 54, pt provided with 4 more 0z juice. recheck 15 mins reading,69.
[2024-03-27 06:06] LABS: Glucose - Point of Care 56 mg/dl (70-99)
[2024-03-27] MEDS: DEXTROSE 50% SYRINGE 12.5 GRAMS IV (06:24)
[2024-03-27 06:31] LABS: Glucose - Point of Care 69 mg/dl (70-99)
--- NOTE | 2024-03-27 06:46 | PTCARENOTE ---
Am follow up glucose per hypoglycemic protocol reading 47. Am labs results which were drawn at same time as POC glucose resulted as 38. Horse Trader made aware of critical result. hypoglycemic protocol being followed. Pt provided with 40z juice, recheck
after 15 Mins reading 54, pt provided with 4 more 0z juice. recheck 15 mins reading,69. MOLD HOISTER made aware, d50 given, recheck 119.
[2024-03-27 06:54] LABS: Glucose - Point of Care 119 mg/dl (70-99)
[2024-03-27] MEDS: NOVOLOG FLEXPEN-LOW RESISTANCE SC ×3 (08:00→17:21)
[2024-03-27] MEDS: LOPRESSOR 75 MG PO ×2 (08:01→19:52)
[2024-03-27] MEDS: LIPITOR 20 MG PO (08:01)
[2024-03-27] MEDS: DESENEX/MITRAZOL/ZEASORB 1 APPLIC TOPICAL ×2 (08:03→19:55)
[2024-03-27 08:09] LABS: Glucose - Point of Care 106 mg/dl (70-99)
[2024-03-27 10:58] LABS: Glucose - Point of Care 75 mg/dl (70-99)
--- NOTE | 2024-03-27 12:07 | CM ---
Initial assessment completed with daughter/primary contact, Annette # [phone]
Patient resides @ [facility]; bedbound, non verbal @ baseline; requires total care
Plan: return to [facility] via ambulance when medically stable
[2024-03-27 12:30] LABS: Glucose - Point of Care 70 mg/dl (70-99)
--- NOTE | 2024-03-27 13:36 | W.PN.HOSP.TC ---
Today's Communication/Plan
-
Assessment / Plan
Assessment / Plan
Altered mental status/TME
-Likely secondary to progressive dementia however should rule out other etiologies
Discussed case with neurology recommends CT brain EEG
Check B12 folate
TSH within normal
Was hypoglycemic which could also be worsening mental status
Start dextrose containing fluids as poor p.o. intake
Dementia
Nonverbal at baseline per report
Delirium precautions
Diabetes type 2 complicated by hypoglycemia
Poor p.o. intake
Start dextrose containing fluids
Decrease dose of Lantus and lispro
Hold lispro sliding scale if NPO
Follow hypoglycemic protocol
Goal blood glucose 1 40-1 80
Vitamin D deficiency
Continue supplementation
Hyperlipidemia continue statin
Permanent atrial fibrillation
Continue metoprolol
Check INR daily goal range 2-3
Daily Coumadin
Anticipated Discharge: 24 - 48 hours
Subjective/Interval History
-
Date of Service: March 27, 2024
Seen and examined. No new complaints. No acute overnight
Objective Data
-
Labs:
Laboratory Results
03/27/24
04:50
WBC 5.4
Hgb 10.1 L
Hct 30.9 L
Plt Count 242
PT 26.5 H
INR 2.44
Sodium 134 L
Potassium 3.9
Chloride 104
Carbon Dioxide 26
BUN 14
Creatinine 0.7
Glucose 38 L*
Calcium 7.9 L
Vital Signs:
Vital Signs
Temp Pulse Resp BP Pulse Ox
97.9 F 71 21 116/67 95
03/27/24 11:28 03/27/24 10:00 03/27/24 10:00 03/27/24 08:01 03/27/24 08:53
I&O
03/26/24 03/27/24 03/28/24
06:59 06:59 06:59
Intake Total 1740 / 1740
Output Total 375 / 375
Balance 1365 / 1365
Physical Exam
-
General: No Apparent Distress
HEENT: Atraumatic
Respiratory: Decreased Breath Sounds (Bibasilar)
Cardiac: S1/S2, Irregular Rhythm and Murmur (2/6 FAUZIA)
GI: Soft, Nontender and Nondistended
Skin: Warm
Psych: Other (Not verbalizing)
--- NOTE | 2024-03-27 14:19 | CON.NEURO ---
Consultation
Order
Date of Consultation: 03/27/24
Requesting Provider: Altaf Ray MD
Reason for Consult: encephalopathy
Neurology Consultation Note.
HPI: This is an 88-year-old woman who presented to [facility] on 03/25/2024 with fever. Neurology evaluation was requested for evaluation management of encephalopathy.
The patient is unable to provide a history.
According to patient's daughter Ms. Lu has had progressive cognitive and functional decline over at least 6 years. At baseline she is nearly nonverbal, nonambulatory (able to sit in a wheelchair, unable to stand) and incontinent.
ER VS: T�38.6,
Telemetry�A-fib
Review of vital signs was notable for hypotension down to 81/58 on 03/26/2024
PDMP:No benzos or opioids
Labs: Glucose�38, sodium�134, normal GFR,, TSH, hemoglobin�10.1, INR 2.44
PMH:dementia, A-Fib, HTN, DLP, CHF. DM, osteoporosis, h/o GIB, NAKIA
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
FH:mother in her 80
All:NKDA
ROS: Unable due to encephalopathy.
General: Well developed. In no acute distress.
Cardio: irregular rate and rhythm without murmur. Extremities are without cyanosis or edema.
Neuro:
Mental Status: Alert, attends to examiner. Does not follow requests. Mimics at times. No verbal output. No hemineglect.
Cranial Nerves: . Pupils are equally round and reactive to light. Blinks to threat bilaterally. No ptosis. No nystagmus. Face symmetric.
Motor: Increased motor tone in upper less than lower extremities. Upper extremities antigravity, lower extremities�minimal movements (
Reflexes: Bilateral grasp
Sensory: Localizes noxious stimuli
Coordination: No tremors myoclonic movement
Gait: Nonambulatory.
Assessment and Plan:
I. Multifactorial encephalopathy (neurodegenerative, infectious, metabolic)
II. PA A-Fib
III. Recurrent hypoglycemia
-Fall and aspiration precautions
-Avoid hypoglycemia and cerebral hypoperfusion
-No indications for additional testing since patient is at her cognitive baseline.
-Continue warfarin for secondary stroke prophylaxis.
-Please recall neurology service with any questions or concerns
I personally reviewed all radiology and labs along with past medical records pertinent to current medical problems. Total time spent in patient care is 60 minutes.
Thank you for allowing us to participate in the care of this patient. We will continue to follow. Please do not hesitate to contact us with any questions or concerns.
Subjective/Objective
Subjective Data
Date of Service: March 27, 2024
Objective Data
Vital Signs
Temp Pulse Resp BP Pulse Ox
36.6 C 71 21 116/67 95
03/27/24 11:28 03/27/24 10:00 03/27/24 10:00 03/27/24 08:01 03/27/24 08:53
Lab Results
03/27/24 04:50
03/27/24 04:50
PT 26.5 Sec (11.4-14.6) H 03/27/24 04:50
INR 2.44 03/27/24 04:50
Sodium 134 mmol/L (135-145) L 03/27/24 04:50
Potassium 3.9 mmol/L (3.5-5.1) 03/27/24 04:50
BUN 14 mg/dl (7-17) 03/27/24 04:50
Glucose 38 mg/dl (70-99) L* 03/27/24 04:50
Calcium 7.9 mg/dl (8.4-10.2) L 03/27/24 04:50
Patient Allergies
No Known Allergies Allergy (Verified 03/25/24 21:46)
Medications
-
Active Medications
Generic Name Dose Route Start Last Admin
Trade Name Freq PRN Reason Stop Dose Admin
Acetaminophen 650 mg 03/26/24 03:40
Acetaminophen 325 Mg Tablet PO 04/23/24 03:39
Q4HPRN PRN
mild pain/temp>101
Atorvastatin Calcium 20 mg 03/26/24 08:00 03/27/24 08:01
Atorvastatin (Lipitor) 20 Mg Tablet PO 04/23/24 07:59 20 mg
DAILY JAN Administration
Dextrose 12.5 grams 03/26/24 03:40 03/27/24 06:24
Dextrose 50% (0.5 Grams/Ml) 50 Ml Syringe IV 04/23/24 03:39 12.5 grams
[id number] PRN Administration
hypoglycemia
Protocol
Glucagon 1 mg 03/26/24 03:40
Glucagon 1 Mg Vial IM 04/23/24 03:39
PRN PRN
hypoglycemia
Protocol
Insulin Glargine 8 units/ 0.08 mls @ 0 mls/hr 03/26/24 22:00 03/26/24 22:28
Device SC 04/23/24 21:59 0.08 mls
HS JAN Administration
As Directed
Piperacillin Sod/Tazobactam Sod 3.375 gram in 50 mls @ 100 mls/hr 03/26/24 12:00 03/27/24 12:19
Zosyn IV 50 mls
Q6 JAN Administration
Dextrose/Sodium Chloride 1,000 mls @ 80 mls/hr 03/27/24 14:00
D5/0.45%Nacl IV
[id number] JAN
Insulin Aspart 0 units 03/26/24 07:30 03/27/24 12:18
Insulin Aspart Low Resistance 300 Units/3 Ml Pen.Injctr SC 04/23/24 07:29 Not Given
AC JAN
Protocol
Metoprolol Tartrate 75 mg 03/26/24 20:00 03/27/24 08:01
Metoprolol 50 Mg Regular Release Tablet PO 04/23/24 19:59 75 mg
BID JAN Administration
Miconazole Nitrate 0 applic 03/26/24 12:00 03/27/24 08:03
Miconazole Powder Bottle TOPICAL 04/23/24 11:59 1 applic
BID JAN Administration
Ondansetron HCl 4 mg 03/26/24 04:00
Ondansetron 4 Mg/2 Ml Vial IV 04/23/24 03:59
Q6HPRN PRN
nausea and vomiting
Sodium Chloride 0 flush 03/26/24 04:00
Sodium Chloride 0.9% (Flush) Syringe IV 04/23/24 03:59
PER PROTOCOL JAN
Warfarin Sodium 1 mg 03/26/24 18:00 03/26/24 17:20
Warfarin 1 Mg Tablet PO 03/31/24 17:59 1 mg
Q48H JAN Administration
Warfarin Sodium 0.5 mg 03/27/24 18:00
Warfarin 0.5 Mg (1/2 Of 1 Mg Tablet) PO 04/01/24 17:59
Q48H JAN
Home Medications
�Medication �Instructions �Recorded
acetaminophen 325 mg tablet 650 mg PO Q4HPRN PRN mild 04/05/18
pain/temp>100
atorvastatin 20 mg tablet 20 mg PO DAILY High Cholesterol 04/05/18
cholecalciferol (vitamin D3) 50 4,000 unit PO DAILY Supplement 04/05/18
mcg (2,000 unit) tablet
mirtazapine 15 mg tablet 7.5 mg PO HS Depression 04/05/18
linagliptin 5 mg tablet 5 mg PO DAILY Diabetes 06/18/22
magnesium oxide 400 mg PO BID Supplement 06/18/22
insulin aspart 4 unit SC DAILY Diabetes 02/15/24
(niacinamide)(U-100) 100 unit/mL(3
mL) subcutaneous pen (Fiasp
FlexTouch U-100 Insulin)
insulin aspart 6 unit SC NOON Diabetes 02/15/24
(niacinamide)(U-100) 100 unit/mL(3
mL) subcutaneous pen (Fiasp
FlexTouch U-100 Insulin)
insulin aspart 7 unit SC QPM Diabetes 02/15/24
(niacinamide)(U-100) 100 unit/mL(3
mL) subcutaneous pen (Fiasp
FlexTouch U-100 Insulin)
insulin glargine 100 unit/mL (3 8 unit SC HS Diabetes 02/15/24
mL) subcutaneous pen (Lantus
Solostar U-100 Insulin)
trolamine salicylate 10 % topical 1 applic topical BID Pain 02/15/24
cream (Aspercreme)
warfarin 1 mg tablet (Jantoven) 1 mg PO Q48H Blood Clot 02/15/24
Prevention/Tx
albuterol sulfate 2.5 mg/3 mL 2.5 mg inhalation R Q4HPRN PRN 03/25/24
(0.083 %) solution for nebulization sob/wheezing
bumetanide 0.5 mg tablet 0.5 mg PO DAILY Fluid 03/25/24
Retention/Swelling
loperamide 2 mg capsule 2 mg PO Q8HPRN PRN diarrhea 03/25/24
metoprolol tartrate 75 mg tablet 75 mg PO BID Blood Pressure 03/25/24
pantoprazole 40 mg granules 40 mg PO AC gerd 03/25/24
delayed-release for susp in packet
warfarin 1 mg tablet 0.5 mg PO Q48H Blood Clot 03/25/24
Prevention/Tx
Vital Signs and Labs
-
Vital Signs and Labs:
Vital Signs
Temp Pulse Resp BP Pulse Ox
36.6 C 71 21 116/67 95
03/27/24 11:28 03/27/24 10:00 03/27/24 10:00 03/27/24 08:01 03/27/24 08:53
Lab Results
03/27/24 04:50
03/27/24 04:50
PT 26.5 Sec (11.4-14.6) H 03/27/24 04:50
INR 2.44 03/27/24 04:50
Sodium 134 mmol/L (135-145) L 03/27/24 04:50
Potassium 3.9 mmol/L (3.5-5.1) 03/27/24 04:50
BUN 14 mg/dl (7-17) 03/27/24 04:50
Glucose 38 mg/dl (70-99) L* 03/27/24 04:50
Calcium 7.9 mg/dl (8.4-10.2) L 03/27/24 04:50
Medications
-
Medications:
Generic Name Dose Route Start Last Admin
Trade Name Freq PRN Reason Stop Dose Admin
Acetaminophen 650 mg 03/26/24 03:40
Acetaminophen 325 Mg Tablet PO 04/23/24 03:39
Q4HPRN PRN
mild pain/temp>101
Atorvastatin Calcium 20 mg 03/26/24 08:00 03/27/24 08:01
Atorvastatin (Lipitor) 20 Mg Tablet PO 04/23/24 07:59 20 mg
DAILY JAN Administration
Dextrose 12.5 grams 03/26/24 03:40 03/27/24 06:24
Dextrose 50% (0.5 Grams/Ml) 50 Ml Syringe IV 04/23/24 03:39 12.5 grams
H17HFEP PRN Administration
hypoglycemia
Protocol
Glucagon 1 mg 03/26/24 03:40
Glucagon 1 Mg Vial IM 04/23/24 03:39
PRN PRN
hypoglycemia
Protocol
Piperacillin Sod/Tazobactam Sod 3.375 gram in 50 mls @ 100 mls/hr 03/26/24 12:00 03/27/24 12:19
Zosyn IV 50 mls
Q6 JAN Administration
Dextrose/Sodium Chloride 1,000 mls @ 80 mls/hr 03/27/24 14:00
D5/0.45%Nacl IV
[id number] JAN
Insulin Glargine 4 units/ 0.04 mls @ 0 mls/hr 03/27/24 22:00
Device SC 04/24/24 21:59
HS JAN
As Directed
Insulin Aspart 0 units 03/26/24 07:30 03/27/24 12:18
Insulin Aspart Low Resistance 300 Units/3 Ml Pen.Injctr SC 04/23/24 07:29 Not Given
AC JAN
Protocol
Metoprolol Tartrate 75 mg 03/26/24 20:00 03/27/24 08:01
Metoprolol 50 Mg Regular Release Tablet PO 04/23/24 19:59 75 mg
BID JAN Administration
Miconazole Nitrate 0 applic 03/26/24 12:00 03/27/24 08:03
Miconazole Powder Bottle TOPICAL 04/23/24 11:59 1 applic
BID JAN Administration
Ondansetron HCl 4 mg 03/26/24 04:00
Ondansetron 4 Mg/2 Ml Vial IV 04/23/24 03:59
Q6HPRN PRN
nausea and vomiting
Sodium Chloride 0 flush 03/26/24 04:00
Sodium Chloride 0.9% (Flush) Syringe IV 04/23/24 03:59
PER PROTOCOL JAN
Warfarin Sodium 1 mg 03/26/24 18:00 03/26/24 17:20
Warfarin 1 Mg Tablet PO 03/31/24 17:59 1 mg
Q48H JAN Administration
Warfarin Sodium 0.5 mg 03/27/24 18:00
Warfarin 0.5 Mg (1/2 Of 1 Mg Tablet) PO 04/01/24 17:59
Q48H JAN
Home Medications
-
Home Medications
acetaminophen 325 mg tablet 650 mg PO Q4HPRN PRN mild pain/temp>100 04/05/18
atorvastatin 20 mg tablet 20 mg PO DAILY High Cholesterol 04/05/18
cholecalciferol (vitamin D3) 50 mcg (2,000 unit) tablet 4,000 unit PO DAILY Supplement 04/05/18
mirtazapine 15 mg tablet 7.5 mg PO HS Depression 04/05/18
linagliptin 5 mg tablet 5 mg PO DAILY Diabetes 06/18/22
magnesium oxide 400 mg PO BID Supplement 06/18/22
insulin aspart (niacinamide)(U-100) 100 unit/mL(3 mL) subcutaneous pen (Fiasp FlexTouch U-100 Insulin) 4 unit SC DAILY Diabetes 02/15/24
insulin aspart (niacinamide)(U-100) 100 unit/mL(3 mL) subcutaneous pen (Fiasp FlexTouch U-100 Insulin) 6 unit SC NOON Diabetes 02/15/24
insulin aspart (niacinamide)(U-100) 100 unit/mL(3 mL) subcutaneous pen (Fiasp FlexTouch U-100 Insulin) 7 unit SC QPM Diabetes 02/15/24
insulin glargine 100 unit/mL (3 mL) subcutaneous pen (Lantus Solostar U-100 Insulin) 8 unit SC HS Diabetes 02/15/24
trolamine salicylate 10 % topical cream (Aspercreme) 1 applic topical BID Pain 02/15/24
warfarin 1 mg tablet (Jantoven) 1 mg PO Q48H Blood Clot Prevention/Tx 02/15/24
albuterol sulfate 2.5 mg/3 mL (0.083 %) solution for nebulization 2.5 mg inhalation R Q4HPRN PRN sob/wheezing 03/25/24
bumetanide 0.5 mg tablet 0.5 mg PO DAILY Fluid Retention/Swelling 03/25/24
loperamide 2 mg capsule 2 mg PO Q8HPRN PRN diarrhea 03/25/24
metoprolol tartrate 75 mg tablet 75 mg PO BID Blood Pressure 03/25/24
pantoprazole 40 mg granules delayed-release for susp in packet 40 mg PO AC gerd 03/25/24
warfarin 1 mg tablet 0.5 mg PO Q48H Blood Clot Prevention/Tx 03/25/24
[2024-03-27] MEDS: D5/0.45%NACL 1000 IV (14:51)
--- NOTE | 2024-03-27 16:25 | PTCARENOTE ---
Assumed care of patient at beginning of this shift from previous RN with LR infusing at 125ml/hr. Patient hypoglycemic overnight. Accu check this morning was 106 at 07:57, 75 at 10:47 and 70 at 12:18. Patient eating approximately 50% of meals.
Reviewed with Dr Ray who decreased dose of lantus and changed IVF to D5 1/2NSS @ 80ml/hr. Received TT this afternoon from CT dept requesting patient have 18g or 20g IV placed in ac for brain perfusion scan. VAT RN placed site in R ac. Neurology
was consulted and in to see patient; stated she was cancelling tests. Daughter in and updated; stated she spoke with neurologist. Patient incontinent of bowel and bladder; saturating when she voids. See worklist for full assessment and vital signs.
[2024-03-27 16:32] LABS: Glucose - Point of Care 41 mg/dl (70-99)
[2024-03-27 16:55] LABS: Glucose - Point of Care 45 mg/dl (70-99)
[2024-03-27 17:13] LABS: Glucose - Point of Care 93 mg/dl (70-99)
[2024-03-27] MEDS: COUMADIN 0.5 MG PO (17:21)
--- NOTE | 2024-03-27 17:57 | PTCARENOTE ---
Accu check 41 at 16:22; patient given OJ as per hypoglycemic protocol. Repeat at 16:41 was 45; OJ given per protocol, patient also had applesauce given by daughter. Repeat at 17:02 was 93; currently being fed dinner. Patient asymptomatic throughout.
[2024-03-27 20:01] LABS: Glucose - Point of Care 122 mg/dl (70-99)
[2024-03-27] MEDS: LANTUS 0.04 UNITS SC (22:11)
[2024-03-27 22:20] LABS: Glucose - Point of Care 105 mg/dl (70-99)
[2024-03-28] VITALS (19 sets, daily range): BP systolic 85–107; BP diastolic 48–73; BMI 32.0
[2024-03-28] MEDS: ZOSYN 50 IV ×4 (00:08→17:14)
[2024-03-28] MEDS: D5/0.45%NACL 1000 IV ×2 (02:26→16:11)
[2024-03-28 02:55] LABS: Glucose - Point of Care 51 mg/dl (70-99)
[2024-03-28 03:31] LABS: Glucose - Point of Care 59 mg/dl (70-99)
--- NOTE | 2024-03-28 03:48 | PTCARENOTE ---
Pt with low blood sugar reading of 51 this AM. 4 oz orange juice given per protocol, 15 minute recheck result 59. 4 oz of juice given again with 15 minute recheck 82. Pt remained asymptomatic throughout event.
[2024-03-28 03:58] LABS: Glucose - Point of Care 82 mg/dl (70-99)
[2024-03-28 04:48] LABS: Hematocrit 31.5 % (37.0-47.0); Hemoglobin 10.2 g/dL (12.0-16.0); Mean Corp Hgb Conc. 32.4 g/dL (33.0-37.0); Mean Corpuscular Hgb 31.1 pg (27.0-31.0); Mean Platelet Volume 10.6 fL (7.4-10.4); Platelet Count 232 10^3/uL (130-400); Red Blood Cell Count 3.28 10^6/uL (4.20-5.40); Red Cell Dist. Width 13.9 % (11.5-14.5); White Blood Cell Count 3.8 10^3/uL (4.8-10.8)
[2024-03-28 04:51] LABS: INR 2.65; PT 28.6 Sec (11.4-14.6)
[2024-03-28 05:02] LABS: Blood Urea Nitrogen 14 mg/dl (7-17); Calcium 7.6 mg/dl (8.4-10.2); Carbon Dioxide 26 mmol/L (22-30); Chloride 102 mmol/L (98-107); Estimated Creatinine Clearance 53 ml/min; Glucose 78 mg/dl (70-99); Potassium 4.2 mmol/L (3.5-5.1); Sodium 133 mmol/L (135-145); eGFR > 60.00
[2024-03-28 06:08] LABS: Folate 10.5 ng/ml (2.76-20); Vitamin B12 758 pg/ml (239-931)
[2024-03-28 06:43] LABS: Glucose - Point of Care 59 mg/dl (70-99)
[2024-03-28 07:14] LABS: Glucose - Point of Care 85 mg/dl (70-99)
[2024-03-28 08:07] LABS: Glucose - Point of Care 74 mg/dl (70-99)
[2024-03-28] MEDS: NOVOLOG FLEXPEN-LOW RESISTANCE SC ×2 (08:49→11:22)
[2024-03-28] MEDS: LOPRESSOR 75 MG PO (09:04)
[2024-03-28] MEDS: DESENEX/MITRAZOL/ZEASORB 1 APPLIC TOPICAL ×2 (09:04→20:57)
[2024-03-28] MEDS: LIPITOR 20 MG PO (09:04)
[2024-03-28] MEDS: TYLENOL 650 MG PO (09:04)
--- NOTE | 2024-03-28 09:09 | WOUNDNOTE ---
HEELS (BLANCHABLE RED)
--- NOTE | 2024-03-28 09:10 | WOUNDNOTE ---
[facility] RN note: Patient admitted with diarrhea, sepsis. Patient admitted from [facility].
See H&P for complete history.
PMH: a fib (Coumadin), CM, dementia, HTN, CHF/CM, dysphagia, CKD4, depression, venous stasis, obesity.
Wound Location and type/assessment: Patient admitted with: R ischial stage 2 vs healing full thickness pressure injury, pink. Sacral stage 1 pressure injury. Blanchable red/boggy heels.
Appetite: on IDDSI 4 pureed diet.
Pressure redistribution devices in place: [employer] air bed.
Plan: R ischial silicone border foam dressing changed. Protective silicone border foam applied to sacrum. Protective foam applied to heels. t/c SPD and ordered Foot Waffle boots. Patient turned to R lateral side position. Heels off bed with pillow.
Will confirm orders with Dr. Altaf Ray or resident and discussed with TRUDI Delvalle.
Care plan to be updated and will follow as needed.
Note to case management of equipment requested for discharge: air mattress if not already in place at SNF.
Recommend follow up at wound care center upon discharge.
[2024-03-28 09:28] LABS: Glucose - Point of Care 76 mg/dl (70-99)
[2024-03-28 11:22] LABS: Glucose - Point of Care 100 mg/dl (70-99)
--- NOTE | 2024-03-28 12:51 | PTOTSP ---
ST Follow-Up
Pt continues to demonstrate clinical signs of mild oral dysphagia characterized by reduced oral cavity opening and mildly prolonged mastication for soft bite sized solids.
Recommendations:
- Upgrade PO diet to SOFT BITE SIZED SOLIDS with THIN LIQUIDS and meds crushed in puree.
- Continue aspiration precautions including 1:1 assist with all PO intake, HOB upright for all PO intake, small bites/sips, and alternate solids/liquids.
- MERCHANDISE PLANNER to f/u re: diet tolerance and to determine if pt is a candidate for any further diet upgrades.
--- NOTE | 2024-03-28 16:21 | W.PN.HOSP.TC ---
Today's Communication/Plan
-
Assessment / Plan
Assessment / Plan
Altered mental status/TME
-Likely secondary to progressive dementia however should rule out other etiologies
Discussed case with neurology recommends CT brain EEG
B12/golate within normal
TSH within normal
Was hypoglycemic which could also be worsening mental status
Start dextrose containing fluids as poor p.o. intake
Dementia
Nonverbal at baseline per report
Delirium precautions
Diabetes type 2 complicated by hypoglycemia
Poor p.o. intake
Start dextrose containing fluids
Decrease dose of Lantus and lispro
Hold lispro sliding scale if NPO
Follow hypoglycemic protocol
Goal blood glucose 1 40-1 80
Vitamin D deficiency
Continue supplementation
Hyperlipidemia continue statin
Permanent atrial fibrillation
Continue metoprolol
Check INR daily goal range 2-3
Daily Coumadin
Needs help with feeding
Anticipated Discharge: > 48 hours
Subjective/Interval History
-
Date of Service: March 28, 2024
seen and exmiande
no new complaints
no acute ovenright events
Objective Data
-
Labs:
Laboratory Results
03/28/24
04:12
WBC 3.8 L
Hgb 10.2 L
Hct 31.5 L
Plt Count 232
PT 28.6 H
INR 2.65
Sodium 133 L
Potassium 4.2
Chloride 102
Carbon Dioxide 26
BUN 14
Creatinine 0.7
Glucose 78
Calcium 7.6 L
Vital Signs:
Vital Signs
Temp Pulse Resp BP Pulse Ox
98.1 F 80 19 103/67 99
03/28/24 15:13 03/28/24 16:16 03/28/24 16:16 03/28/24 16:16 03/28/24 16:00
I&O
03/27/24 03/28/24 03/29/24
06:59 06:59 06:59
Intake Total 1740 / 1740 1400 / 1400 735 / 735
Output Total 375 / 375 375 / 375
Balance 1365 / 1365 1400 / 1400 360 / 360
Physical Exam
-
General: No Apparent Distress
HEENT: Atraumatic
Respiratory: Decreased Breath Sounds
Cardiac: S1/S2, Irregular Rhythm and Murmur
GI: Soft, Nontender and Nondistended
Psych: Other (not verbalizing )
[2024-03-28 17:13] LABS: Glucose - Point of Care 168 mg/dl (70-99)
[2024-03-28] MEDS: COUMADIN 1 MG PO (17:13)
[2024-03-28] MEDS: NOVOLOG FLEXPEN-LOW RESISTANCE 1 UNITS SC (17:40)
[2024-03-28] MEDS: LOPRESSOR PO (21:01)
[2024-03-28 22:10] LABS: Glucose - Point of Care 124 mg/dl (70-99)
[2024-03-29] VITALS (13 sets, daily range): BP systolic 92–123; BP diastolic 56–95
[2024-03-29] MEDS: ZOSYN 50 IV ×5 (01:06→23:00)
[2024-03-29] MEDS: ZOFRAN 4 MG IV (01:56)
--- NOTE | 2024-03-29 02:40 | PTCARENOTE ---
Received pt from day shift RN. Pt nonverbal. D5 1/2NSS infusing at 80 mL/hr. Pt vomited while in bed. Bed change and hygiene completed. PRN Zofran given (see MAR). Pt's R AC IV dressing was saturated with vomit, this RN removed IV and cleaned the
site. PW in place draining clear yellow urine. Pt resting in bed with bed alarm on.
[2024-03-29 03:43] LABS: Glucose - Point of Care 104 mg/dl (70-99)
[2024-03-29] MEDS: VENTOLIN NEBULES 2.5 MG INH (04:23)
--- NOTE | 2024-03-29 04:47 | PTCARENOTE ---
Pt with new onset of audible wheezing. This RN notified VICK Garnica. Albuterol neb Rx'd (see MAR).
[2024-03-29 05:39] LABS: Hematocrit 37.2 % (37.0-47.0); Hemoglobin 11.7 g/dL (12.0-16.0); Mean Corp Hgb Conc. 31.5 g/dL (33.0-37.0); Mean Corpuscular Hgb 30.9 pg (27.0-31.0); Mean Corpuscular Volume 98.2 fL (81.0-99.0); Mean Platelet Volume 10.2 fL (7.4-10.4); Platelet Count 285 10^3/uL (130-400); Red Blood Cell Count 3.79 10^6/uL (4.20-5.40); Red Cell Dist. Width 14.1 % (11.5-14.5)
[2024-03-29 05:51] LABS: INR 2.61; PT 28.4 Sec (11.4-14.6)
[2024-03-29 06:25] LABS: Blood Urea Nitrogen 17 mg/dl (7-17); Calcium 7.9 mg/dl (8.4-10.2); Carbon Dioxide 26 mmol/L (22-30); Chloride 101 mmol/L (98-107); Estimated Creatinine Clearance 47 ml/min; Glucose 178 mg/dl (70-99); Potassium 4.4 mmol/L (3.5-5.1); Sodium 134 mmol/L (135-145); eGFR > 60.00
[2024-03-29] MEDS: D5/0.45%NACL 1000 IV (07:10)
[2024-03-29] MEDS: DESENEX/MITRAZOL/ZEASORB 1 APPLIC TOPICAL ×2 (08:17→19:26)
[2024-03-29] MEDS: LIPITOR 20 MG PO (08:18)
[2024-03-29] MEDS: LOPRESSOR 75 MG PO ×2 (08:18→19:24)
[2024-03-29 09:07] LABS: Glucose - Point of Care 136 mg/dl (70-99)
[2024-03-29] MEDS: NOVOLOG FLEXPEN-LOW RESISTANCE SC (09:29)
--- NOTE | 2024-03-29 10:39 | VATNOTE ---
Left arm reaccessed. Grossly edematous from hand to upper arm. Soft to touch. Left arm reelevated on pillows and warm blanket applied. Discussed with primary care RN and suggested frequent warm blankets and continued elevation.
[2024-03-29] MEDS: NOVOLOG FLEXPEN-LOW RESISTANCE 1 UNITS SC ×2 (13:12→16:58)
[2024-03-29 13:16] LABS: Glucose - Point of Care 162 mg/dl (70-99)
--- NOTE | 2024-03-29 14:12 | PN.CDI ---
CDI
- -
CDI:
Physician Documentation Request
Admit Date: 03/26/24 02:50
Dear Doctor Cory,
Please review the following and provide your response in the progress notes.
Clinical Indicators:
The diagnosis of Sepsis secondary to GI Illness was documented on 03/26 in H&P but is not consistently noted in subsequent documentation.
Presenting temp 102.0, heart rate 126, respiratory rate 26 , WBC 9.4
Please clarify the following:
____ - Sepsis was present on admission
____ - Sepsis was ruled out
____ - Other
Use of terms such as suspected, likely, concern for, or probable (associated with a specific diagnosis that is being evaluated, monitored, or treated as if it exists) are acceptable and can be coded in the inpatient setting, when documented at the
time of discharge.
Thank you,
Kathy Leo RN, BSN
CDI Specialist
tiger text
Please use your independent medical judgment in providing your response.
--- NOTE | 2024-03-29 14:15 | PN.CDI ---
CDI
- -
CDI:
Physician Documentation Request
Admit Date: 03/26/24 02:50
Dear Doctor Cory,
03/28 WOCN note states ' R ischial stage 2 vs healing full thickness pressure injury, pink. Sacral stage 1 pressure injury.
Physician documentation of the type and location of wounds is required for compliant documentation. Based on the above clinical findings and your assessment, please provide the following in your progress note:
1. Location of the ulcer/wound, including laterality.
2. Type (etiology) of ulcer/wound:
- Diabetic ulcer
- Arterial (ischemic) ulcer
- Traumatic wound
- Venous stasis ulcer
- Pressure (decubitus) ulcer
- Non-healing surgical wound
- Other
- Unable to determine
Use of terms such as suspected, likely, concern for, or probable (associated with a specific diagnosis that is being evaluated, monitored, or treated as if it exists) are acceptable and can be coded in the inpatient setting, when documented at the
time of discharge.
Thank you,
Kathy Leo RN, BSN
CDI Specialist
tiger text
Please use your independent medical judgment in providing your response.
*Source: National Pressure Ulcer Advisory Panel (NPUAP)
--- NOTE | 2024-03-29 14:19 | PN.CDI ---
CDI
- -
CDI:
Physician Documentation Request
Admit Date: 03/26/24 02:50
Dear Doctor Cory,
Please review the following and provide your response in the progress notes.
Clinical Indicators:
The diagnosis of Sepsis secondary to GI Illness was documented on 03/26 in H&P but is not consistently noted in subsequent documentation.
Presenting temp 102.0, heart rate 126, respiratory rate 26 , WBC 9.4
Patient presented to ED with fever , cough, diarrhea.
Please clarify the following:
____ - Sepsis was present on admission
____ - Sepsis was ruled out
____ - Other
Use of terms such as suspected, likely, concern for, or probable (associated with a specific diagnosis that is being evaluated, monitored, or treated as if it exists) are acceptable and can be coded in the inpatient setting, when documented at the
time of discharge.
Thank you,
Kathy Leo RN, BSN
CDI Specialist
tiger text
Please use your independent medical judgment in providing your response.
[2024-03-29] MEDS: IMODIUM 2 MG PO (14:41)
--- NOTE | 2024-03-29 14:47 | W.PN.HOSP.TC ---
Today's Communication/Plan
-
Begin dispo planning
Assessment / Plan
Assessment / Plan
Altered mental status/TME
-Likely secondary to progressive dementia however should rule out other etiologies
Discussed case with neurology recommends CT brain EEG
B12/golate within normal
TSH within normal
Dementia
Nonverbal at baseline per report
Delirium precautions
Diabetes type 2 complicated by hypoglycemia
Hypoglycemia now resolved
This was with the help of the nursing staff that was providing feedings for her and along with dextrose containing fluids
Will take the dextrose containing fluids off see if she tolerates well and if hypoglycemia does not return
Vitamin D deficiency
Continue supplementation
Hyperlipidemia continue statin
Permanent atrial fibrillation
Continue metoprolol
Check INR daily goal range 2-3
Daily Coumadin
Needs help with feeding, eat approximately 50 to 75% of meals
Anticipated Discharge: Within 24 hours
Subjective/Interval History
-
Date of Service: March 29, 2024
Seen and examined. No new complaints. No acute overnight events.
Discussed with bedside nurse, left upper extremity IV infiltrated, left upper extremity arm swelling noted
Objective Data
-
Labs:
Laboratory Results
03/29/24
05:31
WBC 7.0
Hgb 11.7 L
Hct 37.2
Plt Count 285 D
PT 28.4 H
INR 2.61
Sodium 134 L
Potassium 4.4
Chloride 101
Carbon Dioxide 26
BUN 17
Creatinine 0.8
Glucose 178 H
Calcium 7.9 L
Vital Signs:
Vital Signs
Temp Pulse Resp BP Pulse Ox
98.5 F 84 20 92/56 98
03/29/24 11:30 03/29/24 14:00 03/29/24 14:00 03/29/24 14:00 03/29/24 14:00
I&O
03/28/24 03/29/24 03/30/24
06:59 06:59 06:59
Intake Total 1400 / 1400 2850 / 2850 460 / 460
Output Total 375 / 375
Balance 1400 / 1400 2475 / 2475 460 / 460
Physical Exam
-
General: No Apparent Distress
HEENT: Atraumatic
Respiratory: Decreased Breath Sounds
Cardiac: S1/S2 and Irregular Rhythm
GI: Soft, Nontender, Nondistended and Normal Bowel Sounds
Skin: Warm
--- NOTE | 2024-03-29 15:49 | CM ---
Addendum entered by Nallely Orozco RN 03/29/24 16:49:
Spoke with daughter Annette; she has been getting updates from the nurse. She agrees with her mother returning to [facility] tomorrow by ambulance if medically ready per MD. IMM completed and copy sent to her email at [email or web address].
Ambulance forms completed and placed on chart.
Plan probable return to [facility] tomorrow by ambulance if medically ready.
Original Note:
Patient from [facility] with Hx dementia, non-verbal status. Room air. Receiving IV Zosyn. PT & OT; Therapy not warranted.
Message from Dr Ray; if no further episode of hypoglycemia plan to return to SNF tomorrow.
Spoke with Ashtyn, [facility]; they are able to accept the patient back tomorrow if she is medically ready. The phone for report [phone], fax [phone].
Phone calls to daughter Annette and son Chris; left messages requesting callback re; possible d/c tomorrow.
Plan probable return to [facility] tomorrow by ambulance if medically ready.
[2024-03-29 16:59] LABS: Glucose - Point of Care 155 mg/dl (70-99)
[2024-03-29] MEDS: COUMADIN 0.5 MG PO (17:08)
[2024-03-29 21:56] LABS: Glucose - Point of Care 101 mg/dl (70-99)
[2024-03-30] VITALS (9 sets, daily range): BP systolic 102–117; BP diastolic 59–79; BMI 32.3
--- NOTE | 2024-03-30 02:52 | PTCARENOTE ---
Received pt from day shift RN. Pt nonverbal. hygiene completed and scheduled medications administered. Pt resting in bed with bed alarm on.
[2024-03-30] MEDS: ZOSYN 50 IV ×2 (05:12→11:49)
[2024-03-30 05:31] LABS: Hemoglobin 10.7 g/dL (12.0-16.0); Mean Corp Hgb Conc. 32.4 g/dL (33.0-37.0); Mean Corpuscular Hgb 31.5 pg (27.0-31.0); Mean Corpuscular Volume 97.1 fL (81.0-99.0); Platelet Count 278 10^3/uL (130-400); Red Cell Dist. Width 13.9 % (11.5-14.5); White Blood Cell Count 5.3 10^3/uL (4.8-10.8)
[2024-03-30 05:44] LABS: INR 2.86
[2024-03-30 05:57] LABS: Blood Urea Nitrogen 17 mg/dl (7-17); Calcium 7.6 mg/dl (8.4-10.2); Carbon Dioxide 29 mmol/L (22-30); Chloride 101 mmol/L (98-107); Estimated Creatinine Clearance 47 ml/min; Glucose 96 mg/dl (70-99); Potassium 4.3 mmol/L (3.5-5.1); Sodium 133 mmol/L (135-145); eGFR > 60.00
[2024-03-30] MEDS: NOVOLOG FLEXPEN-LOW RESISTANCE SC ×3 (08:14→18:36)
[2024-03-30] MEDS: LIPITOR 20 MG PO (08:17)
[2024-03-30] MEDS: LOPRESSOR 75 MG PO (08:17)
[2024-03-30] MEDS: DESENEX/MITRAZOL/ZEASORB 1 APPLIC TOPICAL (08:20)
[2024-03-30 08:24] LABS: Glucose - Point of Care 72 mg/dl (70-99)
--- NOTE | 2024-03-30 10:47 | PTCARENOTE ---
PT LA CONTINUES +2-3 EDEMA, SUGGESTED US TO PRIMARY RN AVA, PT RESTING
[2024-03-30 12:24] LABS: Glucose - Point of Care 143 mg/dl (70-99)
[2024-03-30 12:52] LABS: Glucose - Point of Care 118 mg/dl (70-99)
--- NOTE | 2024-03-30 14:25 | CM ---
Patient from [facility] with Hx dementia, non-verbal status. Room air. Receiving IV Zosyn. PT & OT; Therapy not warranted.
Spoke with Ashtyn, [facility]; they are able to accept the patient back today. The phone for report [phone], fax [phone].
CM spoke with daughter Annette yesterday re; d/c today and IMM completed.
Plan return to [facility] today by ambulance.
--- NOTE | 2024-03-30 15:54 | W.PN.HOSP.TC ---
Today's Communication/Plan
-
dc to snf
More than 30 minutes spent in discharge including
Final examination of the patient
Summarizing hospital stay
Instructions for continuing care to all relevant caregivers
Preparation of discharge records, prescriptions, and referral forms
Total time spent (in minutes): 33mins
Assessment / Plan
Assessment / Plan
Altered mental status/TME
-Likely secondary to progressive dementia however should rule out other etiologies
Discussed case with neurology recommends CT brain EEG
B12/golate within normal
TSH within normal
Dementia
Nonverbal at baseline per report
Delirium precautions
Diabetes type 2 complicated by hypoglycemia
Hypoglycemia now resolved
This was with the help of the nursing staff that was providing feedings for her and along with dextrose containing fluids
Will take the dextrose containing fluids off see if she tolerates well and if hypoglycemia does not return
Stop long and short acting insulin
Stop linagliptin
Vitamin D deficiency
Continue supplementation
Hyperlipidemia continue statin
Permanent atrial fibrillation
Continue metoprolol
Check INR daily goal range 2-3
Daily Coumadin
Needs help with feeding, eat approximately 50 to 75% of meals
Anticipated Discharge: Today
Subjective/Interval History
-
Date of Service: March 30, 2024
seen and exmained
no new complaitns
no acute overnight events
Objective Data
-
Labs:
Laboratory Results
03/30/24
05:18
WBC 5.3
Hgb 10.7 L
Hct 33.0 L
Plt Count 278
PT 30.0 H
INR 2.86
Sodium 133 L
Potassium 4.3
Chloride 101
Carbon Dioxide 29
BUN 17
Creatinine 0.8
Glucose 96
Calcium 7.6 L
Vital Signs:
Vital Signs
Temp Pulse Resp BP Pulse Ox
98.5 F 77 17 105/67 98
03/30/24 11:35 03/30/24 14:00 03/30/24 14:00 03/30/24 14:00 03/30/24 14:00
I&O
03/29/24 03/30/24 03/31/24
06:59 06:59 06:59
Intake Total 2850 / 2850 1030 / 1030
Output Total 375 / 375
Balance 2475 / 2475 1030 / 1030
Physical Exam
-
General: No Apparent Distress
HEENT: Normocephalic and Atraumatic
Respiratory: Clear to Auscultation
Cardiac: S1/S2 and Irregular Rhythm
GI: Soft, Nontender and Nondistended
Skin: Warm and Dry
--- NOTE | 2024-03-30 15:57 | W.DCSUMMARY ---
Addendum entered and electronically signed by Altaf Ray MD 03/30/24 17:25:
Wound Location and type/assessment: Patient admitted with: R ischial stage 2 vs healing full thickness pressure injury, pink. Sacral stage 1 pressure injury. Blanchable red/boggy heels.
Addendum entered and electronically signed by Altaf Ray MD 03/30/24 17:25:
Sepsis was ruled out
Original Note:
Discharge Summary
Discharge Data
Date of Admission: 03/26/24
Date of Discharge: 03/30/24
-
Pending Results: No
Hospital Course
88y F with PMH significant for A-Fib, cardiomyopathy, dementia and DM-II
Presented with mental status change and diarrhea from nursing facility. Was evaluated by neurology found to be at baseline mental status. Stool studies including C. difficile bacterial and norovirus all negative. Started on a diet tolerated well
however does require assistance with feeding for entire time. Typically eats about 50 to 75% of meal. If she does not she becomes hypoglycemic. Had multiple episodes of hypoglycemia in the hospital therefore long-acting insulin held. On short
acting insulin sliding scale for which we will continue. Will continue to need to follow-up on Accu-Cheks ACHS. A1c is 6.3%.
CTAP
IMPRESSION:
There is mild wall thickening and mucosal hyperenhancement within the sigmoid colon and rectum favored to represent proctocolitis. There is mild colonic stool burden.
There is a moderate right-sided and small left-sided pleural effusion with adjacent atelectasis. Mild diffuse body wall edema.
Unchanged appearance of the peripherally calcified cystic lesion posterior to the infrarenal IVC and which is likely benign.
CXR
IMPRESSION:
There is a small right pleural effusion with a right basilar opacity which may represent atelectasis, although aspiration could appear similar.
Wound Care Instructions
R ischial ulcer-clean with saline or soap and water, silicone border foam, change daily and prn loosened dressing (add alginate prn large amount of drainage).
Sacrum-silicone border foam, change q 3 days and prn loosened dressing.
Heels-protective foam dressing, change q 3 days and prn loosened dressing.
Miconazole powder to affected skin folds bid.
air mattress
turning schedule
Elevate heels off bed; soft heel relief boots as tolerated; air chair cushion under heels/boots.
Pressure redistributing chair cushion (i.e. Roho).
Follow up with wound day care assistant or at wound care center call for an appointment.
Discharge Plan
-
Patient Disposition: Longterm/SNF
Discharge Diagnosis/Procedures: Altered mental status
Activity Restrictions/Additional Instructions:
Presented with mental status change and diarrhea from nursing facility. Was evaluated by neurology found to be at baseline mental status. Stool studies including C. difficile bacterial and norovirus all negative. Started on a diet tolerated well
however does require assistance with feeding for entire time. Typically eats about 50 to 75% of meal. If she does not she becomes hypoglycemic. Had multiple episodes of hypoglycemia in the hospital therefore long-acting insulin held. On short
acting insulin sliding scale for which we will continue. Will continue to need to follow-up on Accu-Cheks ACHS. A1c is 6.3%.
CTAP
IMPRESSION:
There is mild wall thickening and mucosal hyperenhancement within the sigmoid colon and rectum favored to represent proctocolitis. There is mild colonic stool burden.
There is a moderate right-sided and small left-sided pleural effusion with adjacent atelectasis. Mild diffuse body wall edema.
Unchanged appearance of the peripherally calcified cystic lesion posterior to the infrarenal IVC and which is likely benign.
CXR
IMPRESSION:
There is a small right pleural effusion with a right basilar opacity which may represent atelectasis, although aspiration could appear similar.
Wound Care Instructions
R ischial ulcer-clean with saline or soap and water, silicone border foam, change daily and prn loosened dressing (add alginate prn large amount of drainage).
Sacrum-silicone border foam, change q 3 days and prn loosened dressing.
Heels-protective foam dressing, change q 3 days and prn loosened dressing.
Miconazole powder to affected skin folds bid.
air mattress
turning schedule
Elevate heels off bed; soft heel relief boots as tolerated; air chair cushion under heels/boots.
Pressure redistributing chair cushion (i.e. Roho).
Follow up with wound day care assistant or at wound care center call for an appointment.
Referrals:
Laurent Jensen MD [Family Provider] -
Prescriptions:
New
insulin lispro 100 unit/mL insulin pen
1 sliding scale dose SC DIRECTED Qty: 15 0RF
Continued
acetaminophen 325 MG tablet
650 mg PO Q4HPRN PRN (Reason: mild pain/temp>100)
atorvastatin 20 MG tablet
20 mg PO DAILY
mirtazapine 15 MG tablet
7.5 mg PO HS
cholecalciferol (vitamin D3) 2,000 UNITS tablet
4,000 unit PO DAILY
magnesium oxide 400 mg magnesium Tablet
400 mg PO BID
trolamine salicylate [Aspercreme] 10 % Cream
1 applic TOPICAL BID
Rx Instructions:
right knee
warfarin [Jantoven] 1 MG tablet
1 mg PO Q48H
albuterol sulfate 2.5 mg /3 mL (0.083 %) Solution For Nebulization
2.5 mg INHALATION R Q4HPRN PRN (Reason: sob/wheezing)
loperamide 2 mg Capsule
2 mg PO Q8HPRN PRN (Reason: diarrhea)
bumetanide 0.5 mg Tablet
0.5 mg PO DAILY
warfarin 1 mg Tablet
0.5 mg PO Q48H
pantoprazole [address] For Susp In Packet
40 mg PO AC
metoprolol tartrate 75 mg Tablet
75 mg PO BID
Discontinued
linagliptin 5 mg Tablet
5 mg PO DAILY
Fiasp FlexTouch U-100 Insulin 100 unit/mL (3 mL) Insulin Pen
6 unit SC NOON
insulin glargine [Lantus Solostar U-100 Insulin] 100 unit/mL (3 mL) Insulin Pen
8 unit SC HS
Fiasp FlexTouch U-100 Insulin 100 unit/mL (3 mL) Insulin Pen
7 unit SC QPM
Fiasp FlexTouch U-100 Insulin 100 unit/mL (3 mL) Insulin Pen
4 unit SC DAILY
Discharge Orders:
Discharge Patient (As Directed); Ordered 03/30/24
Ordered By: Altaf Ray
Discharge Date and Time
Print Language: SENEGALESE
[2024-03-30 17:47] LABS: Glucose - Point of Care 134 mg/dl (70-99)
== END 2024-03-30 18:36 | DRG 92 ==
LOC: IMU 02:50
PROVIDERS: Nurse Practitioner Family; ADMITTING PHYSICIAN Hospitalist; ATTENDING PHYSICIAN Hospitalist; CONSULT PHYSICIAN Psychiatry & Neurology Neurology; EMERGENCY PHYSICIAN Emergency Medicine; FAMILY PHYSICIAN Internal Medicine
DX: G92.8 Other toxic encephalopathy (principal); I13.0 Hypertensive heart and chronic kidney disease with heart failure and stage 1 through stage 4 chronic kidney disease, or unspecified chronic kidney disease; I48.21 Permanent atrial fibrillation; I50.32 Chronic diastolic (congestive) heart failure; N18.4 Chronic kidney disease, stage 4 (severe); J98.11 Atelectasis; E11.22 Type 2 diabetes mellitus with diabetic chronic kidney disease; E11.649 Type 2 diabetes mellitus with hypoglycemia without coma; E11.51 Type 2 diabetes mellitus with diabetic peripheral angiopathy without gangrene; Z66 Do not resuscitate; E55.9 Vitamin D deficiency, unspecified; E78.5 Hyperlipidemia, unspecified; L89.151 Pressure ulcer of sacral region, stage 1; Z11.52 Encounter for screening for COVID-19; Z59.89 Other problems related to housing and economic circumstances
CPT/HCPCS: 71045; 74177; 80048; 80053; 82248; 82607; 82746; 82962; 83036; 83605; 83735; 84443; 85025; 85027; 85610; 87040; 87045; 87046; 87070; 87324; 87427; 87449; 87502; 87798; 87811; 92526; 92610; 93005; 94640; 96361; 96374; 99285; Q9967